=== PATIENT | female | born 1955 | race Caucasian/White ===

== ENCOUNTER 2019-12-30 18:18 | Emergency (ER) | payer OTHER, SELFPAY ==
--- NOTE | 2019-12-30 18:49 | ED.SKABFB ---
HPI - Skin/Abscess/Foreign Bdy General Chief complaint: Skin/Abscess/Foreign Body Stated complaint: Rash Time Seen by Provider: 12/30/19 19:18 Source: patient and RN notes reviewed Mode of arrival: ambulatory Limitations: no limitations History of Present Illness HPI narrative: 64-year-old female presents with concern for itchy rash. Reports she has spots that move around. Reports current rash on her right hip, spot on her left abdomen. Reports she will have different spots in different places. She denies any change in medications, household products, personal care products. Reports she was taking Benadryl with no relief. Reports she was concern for shingles. MD complaint: rash Related Data Home Medications Medication Instructions Recorded Confirmed Vitamin D-2 50,000 units PO WEEKLY 12/30/19 atorvastatin 40 mg PO DAILY 12/30/19 12/30/19 irbesartan 150 mg PO DAILY 12/30/19 12/30/19 Allergies Allergy/AdvReac Type Severity Reaction Status Date / Time No Known Allergies Allergy Verified 12/30/19 19:09 Review of Systems Review of Systems: Narrative: CONSTITUTIONAL: Denies malaise, chills, sweats, or fever. EYES: Denies visual changes, redness, or discharge. ENT: Denies rhinorrhea, congestion, sinus pain, otalgia or sore throat. CARDIOVASCULAR: Denies chest pain, palpitations, or edema. RESPIRATORY: Denies cough or dyspnea. GASTROINTESTINAL: Denies abdominal pain, nausea, vomiting, diarrhea SKIN: Reports itchy rash MUSCULOSKELETAL: Denies myalgia. NEUROLOGIC: Denies numbness, weakness All systems reviewed & are unremarkable except as noted in HPI and below PMFSH Comments At time of signature, agree with nursing past medical, surgical, social and family history. There is no relevant family history pertinent to the presenting complaint Exam Narrative: Exam Narrative: GENERAL: Well-appearing, well-nourished, and in no acute distress. HEAD: Normocephalic EYES: PERRLA, conjunctivae clear ENT: Mucous membranes moist. Tonsils not enlarged and without exudate. NECK: Supple. CHEST: No respiratory distress. Speaks in full sentences. SKIN: Warm, dry. Scattered red urticarial patches noted to right hip, left abdomen NEURO: Alert and oriented x3. PSYCH: Normal mood and affect Course Course Emergency Course: Patient is aware of diagnosis, understands and agrees to treatment plan. Anticipatory guidance given. Patient agrees to follow-up as directed and is aware of reasons to seek care at the emergency department. Portions of this record may have been created with voice recognition software Vital Signs Vital signs: Vital Signs Temperature 97.7 F 12/30/19 18:50 Pulse Rate 81 12/30/19 18:50 Respiratory Rate 16 12/30/19 18:50 Blood Pressure 139/84 12/30/19 18:50 Pulse Oximetry 100 12/30/19 18:50 Temperature 97.7 F 12/30/19 18:50 Pulse Rate 81 12/30/19 18:50 Respiratory Rate 16 12/30/19 18:50 Blood Pressure 139/84 12/30/19 18:50 Pulse Oximetry 100 12/30/19 18:50 Reviewed. MDM - Skin/Abscess/Foreign Bdy MDM Narrative Medical decision making narrative: Does not appear at this time to be erythema multiforme, bullous, SJS, TEN; no evidence at this time to suggest RMSF, endocarditis or Lyme disease; patient looks well, nontoxic and is tolerating oral intake; no neurologic signs or symptoms; no headache, photophobia or neck pain; afebrile; appropriate for initial outpatient treatment; discussed the importance of follow-up, patient agrees; question, viral exanthema, contact dermatitis, allergic dermatitis, eczema, urticaria, shingles. No soft palate or uvula edema, no tongue, lip edema or other mucosal involvement, no respiratory compromise, no stridor, no wheezing, no wheezing, no history of syncope, no hypotension, no nausea, vomiting, or diarrhea. Instructed patient to go to nearest ER immediately for any worsening symptoms including but not limited to: fever, spreading rash, pain, sore throa
[2019-12-30 18:50] VITALS: BP 139/84; PULSE 81; RESP 16; TEMP 36.5; O2SAT 100
== END 2019-12-30 19:40 | disposition home or self-care (01) ==
PROVIDERS: Emergency Provider Nurse Practitioner
DX: L50.9 Urticaria, unspecified (principal); Z95.1 Presence of aortocoronary bypass graft; E78.00 Pure hypercholesterolemia, unspecified; I10 Essential (primary) hypertension
CPT/HCPCS: 99203; G0463

== ENCOUNTER 2023-01-01 13:54 | Emergency (ER) | payer MEDICARE, SELFPAY ==
--- NOTE | ~2023-01-01 | XR_ITS ---
XR hand LT min 3V DATE: 01/01/2023 14:18 INDICATION: Injury January 01, 2023. Generalized pain. TECHNIQUE: 3 views left hand COMPARISON: None FINDINGS: There is a linear oblique fracture of the distal shaft of the fourth metacarpal bone with l ess than one cortical width lateral and up to approximately 2 mm anterior displacement. There is appr oximately 2.5 mm overriding of the fracture fragments with associated shortening of the fourth metaca rpal bone. No other recent fracture or dislocation is detected. There is mild osteoarthritis at the interphalangeal joints primarily. Osteopenia. IMPRESSION: Distal fourth metacarpal shaft fracture Reviewed, dictated and finalized at location A. MAKER
[2023-01-01 14:02] VITALS: BP 136/75; PULSE 74; RESP 20; TEMP 36.9; O2SAT 94
--- NOTE | 2023-01-01 14:16 | ED.UPPEXIN ---
HPI - Extremity Injury (Upper) General Chief Complaint: Extremity Injury, Upper Stated Complaint: left hand injury Source: patient and RN notes reviewed History of Present Illness HPI narrative: 67-year-old female presents urgent care with at side. Patient states this morning around 6:30 a.m. her suffer got caught on concrete step causing her to fall. Patient states fall causing injury to her left ring finger. Patient admits to hitting her right cheek and her right knee. Denies any LOC, neck pain, headache, dizziness, visual disturbance, chest pain, shortness of breath, abdominal pain, or vomiting. Patient denies any numbness or tingling. Related Data Home Medications Medication Instructions Recorded Confirmed aspirin 81 mg tablet,delayed 81 mg PO DAILY 11/28/22 01/01/23 release (Adult Aspirin Regimen) ezetimibe 10 mg tablet (Zetia) 10 mg PO DAILY 11/28/22 01/01/23 Allergies Allergy/AdvReac Type Severity Reaction Status Date / Time No Known Allergies Allergy Verified 01/01/23 14:02 Review of Systems Review of Systems: CONSTITUTIONAL: Denies fever, chills, or sweats. EYES: Denies visual changes, redness, or discharge. ENT: Denies otalgia and sore throat CARDIOVASCULAR: Denies chest pain, palpitations, or edema. RESPIRATORY: Denies cough or dyspnea. GASTROINTESTINAL: Denies abdominal pain, nausea, vomiting, or diarrhea. GENITOURINARY: Denies dysuria or hematuria. SKIN: Denies rash or itching. MUSCULOSKELETAL: Reports left finger pain NEUROLOGIC: Denies headache, numbness, or weakness. [facility] Past Medical History Medical History BMI 39.0-39.9,adult BMI 40.0-44.9, adult Cholecystectomy planned Surgical History Surgical History History of dilatation and curettage History of elbow surgery History of hysterectomy History of knee surgery History of open heart surgery History of shoulder surgery Family History Family History Father Hypertension Mother Acute myocardial infarction Lung cancer Sibling Breast cancer Lung cancer Anal cancer Cerebrovascular accident Social History Social History Smoking status: Former smoker Tobacco type: cigarettes Second hand tobacco smoke exposure: Yes Alcohol intake: never Substance use: never Substance use type: does not use Lack of Transportation: No Lack of Food: Never True Current Housing: I Have Housing Concerned About Future Housing: No Difficulty Paying Gas/Electric Bills: No Difficulty Paying for Meds: No Currently Unemployed: No Education: High School Diploma/GED Difficulty w/ Childcare or Family Care: No Living arrangements: with family Occupation/Education: retired 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 There is no relevant family history pertinent to the patient complaint. Exam Narrative: GENERAL: This is a well-nourished, well-developed patient, in no apparent distress. HEAD: normocephalic, atraumatic. EYES: PERRL. Sclera clear/white. Vision is grossly intact. EARS: External ears normal, auditory canals clear and without drainage, TMs normal without perforation. Hearing grossly intact. NOSE: External nose normal with no obvious nasal discharge, nares without redness, no rhinorrhea. THROAT: Mucous membranes moist, posterior pharynx clear. NECK: Neck supple, non-tender without lymphadenopathy, masses or thyromegaly. CARDIOVASCULAR: Regular rate and rhythm without murmurs, gallops, or rubs. RESPIRATORY: Clear to auscultation. Breath sounds equal odell
== END 2023-01-01 15:05 | disposition home or self-care (01) ==
PROVIDERS: Emergency Provider Nurse Practitioner Family; PCP Nurse Practitioner Family
DX: S62.325A Displaced fracture of shaft of fourth metacarpal bone, left hand, initial encounter for closed fracture (principal); W10.9XXA Fall (on) (from) unspecified stairs and steps, initial encounter; Z79.82 Long term (current) use of aspirin; Z87.891 Personal history of nicotine dependence
CPT/HCPCS: 29125; 73130; 99214; A4565; G0463

== ENCOUNTER 2023-01-05 02:37 | Day surgery (SDC) | payer MEDICARE, SELFPAY ==
[2023-01-03 09:02] VITALS: BMI 42.1
--- NOTE | 2023-01-03 09:23 | PC.NURSE ---
Report to the Outpatient Waiting Room, entrance under the green pavilion located off [address], at time ___0830____ on date _01/05/23 . Planned Procedure Time: ___1030 . Time changes happen often and if your time is changed the preop area will call you the afternoon before. - You and your visitor will be asked to self-screen and do not enter if you have any COVID symptoms. - Only one visitor is requested with a max of two and NO children visitors are allowed at this time. - The patient visitor may be requested to leave or wait in car when not with patient due to distancing restrictions. - A mask is optional within the hospital at this time. Patients may have clear liquids (water, carbonated beverages, clear teas, apple juice) until 3 hours prior to surgery (0730 AM) with a maximum of 20 ounces. - No food from midnight until time of surgery - Infants may have breast milk until 4 hours before surgery, infant formula 6 hours prior to surgery. - Children will be allowed to drink immediately following surgery. If applicable, please bring a bottle or sippy cup to assist with drinking. Juice, water, soda, and popsicles are readily available. For infants on formula, please bring formula the day of surgery. Pacifiers are allowed. Take the following medications with a SIP of water the morning of surgery: LEVOTHYROXINE DO NOT STOP ANY OF YOUR OTHER PRESCRIPTION MEDICATIONS PRIOR TO SURGERY ?EXCEPT THE FOLLOWING Medications to discontinue per physician ___PT STATES INSTRUCTED TO STAY ON ASPIRIN AND PLAVIX PER DR. KIMBLE Date to take last dose Please no make-up, nail setswana, hairspray, perfume, deodorant, or body powder the day of surgery. No jewelry (including any body piercings) or valuables the day of surgery, leave them at home. Please take a shower or bath the night before, or the morning of, surgery with an antibacterial soap. Wear comfortable, loose fitting clothing. Children are encouraged to wear pajamas. - Jewelry must be removed prior to entering the operating room. Rings and piercings that are not removed may be cut off. - The hospital will not accept responsibility for valuables. - Please leave all valuables, including medications, at home the day of surgery. If you are going home after surgery, a licensed company truck driver must drive you home. - NO public transportation without another adult if you receive anesthesia. - We recommend that an adult stay with you for 24 hours following discharge. - We also recommend that you do not drive, make important decision, drink alcoholic beverages, or take any drugs that were not prescribed by your health care provider for at least 24 hours after your discharge time. For Pediatric surgeries, we recommend two adults accompany the child home. Follow any additional instructions given to you from your surgeon. If you or anyone in your household have experienced Covid symptoms in the past week, please notify your surgeon or the nurse liaison at the phone number below for possible testing. Telephone instructions given to ____PATIENT and asked if any additional questions and then verbalized understanding. Patient advised to call surgeon office or pre surgery nurse liaison [phone] if any additional questions.
[2023-01-05] VITALS (10 sets, daily range): BP systolic 122–144; BP diastolic 51–78; PULSE 66–101; RESP 12–18; TEMP 36.7–37.1; O2SAT 92–99
--- NOTE | ~2023-01-05 | XR_ITS ---
EXAMINATION: XR surgery orthopedic DATE: 01/05/2023 11:59 INDICATION: ORIF left fourth finger fracture. TECHNIQUE: 3 fluoroscopic images of the left hand centered at the fourth metacarpal were obtained dur ing procedure performed by Dr. Gomez. Radiologist was not present for the imaging or procedure. The a mount of fluoroscopy time used during this procedure was 1.3 minutes. COMPARISON: Radiographs dated 01/01/2023 FINDINGS: Interval reduction to essentially anatomic alignment of an oblique fracture of the distal metaphysis of the left fourth metacarpal. The fracture is fixed with a pair of dorsal to volar directed screws. No other fractures identified. Joint spaces are normal. IMPRESSION: 1. Near-anatomic alignment post open reduction internal fixation of a distal diaphyseal fracture of t he left fourth metacarpal. Reviewed, dictated and finalized at location D. OR BUSINESS CONSULTANT IMPRESSION: 1. Near-anatomic alignment post open reduction internal fixation of a distal di aphyseal fracture of the left fourth metacarpal.
--- NOTE | 2023-01-05 07:08 | WPDHPUPDATE1 ---
History and Physical Update Update Date/Time: 01/05/23 07:08 History and Physical has been reviewed, including an updated exam of the patient. There are NO changes in the patient's condition. Risks, benefits, and alternatives have been discussed and questions answered. Patient agrees to proceed with procedure.
[2023-01-05] MEDS: ACETAMINOPHEN 500 MG TABLET 1000 MG PO (08:00)
[2023-01-05] MEDS: LACTATED RINGERS 1,000 ML 30 ML IV CONT (08:07)
--- NOTE | 2023-01-05 08:40 | WPDANESEPPF ---
Anes - Initial Pre Proc Eval Procedure: Operation Date: 01/05/23 09:30 Proposed Procedures p Open Reduction Internal Fixation Left Fourth Metacarpal Fracture - Jax Gomez MD Date/Time: 01/05/23 08:40 Surgeon: Jax Gomez MD Pre Op Diagnosis: left fourth metacarpal fracture Patient Data Age: 67 Gender: F Height: 1.63 m Weight: 107.4 kg Last Vital Signs Temp 98.8 F 01/05/23 08:03 Pulse 66 01/05/23 08:03 Resp 14 01/05/23 08:03 BP 136/77 01/05/23 08:03 Pulse Ox 97 01/05/23 08:03 O2 Del Method Room Air 01/05/23 08:03 Allergies Allergy/AdvReac Type Severity Reaction Status Date / Time No Known Allergies Allergy Verified 01/05/23 08:08 Home Medications Medication Instructions Recorded Confirmed Type clopidogrel 75 mg tablet 75 mg PO DAILY #1 tablet 08/29/22 01/03/23 Rx aspirin 81 mg tablet,delayed 81 mg PO DAILY 11/28/22 01/03/23 History release (Adult Aspirin Regimen) duloxetine 30 mg capsule,delayed 30 mg PO DAILY #90 caps 11/28/22 01/03/23 Rx release ezetimibe 10 mg tablet (Zetia) 10 mg PO DAILY 11/28/22 01/03/23 History famotidine 20 mg tablet 20 mg PO BID #60 tabs 11/28/22 01/03/23 Rx levothyroxine 50 mcg tablet 50 mcg PO DAILY #90 tabs 12/23/22 01/05/23 Rx cetirizine 10 mg capsule (Zyrtec) 10 mg PO HS PRN Congestion 01/03/23 01/03/23 History Patient hx anesthesia problems: post op nausea/vomiting Family hx anesthesia problems: none Results Review: All pre-operative results and documents have been reviewed as part of the pre-operative evaluation. [facility] Past Medical History Medical History BMI 39.0-39.9,adult BMI 40.0-44.9, adult Cholecystectomy planned Surgical History Surgical History History of dilatation and curettage History of elbow surgery History of hysterectomy History of knee surgery History of open heart surgery History of shoulder surgery Family History Family History Father Hypertension Mother Acute myocardial infarction Lung cancer Sibling Breast cancer Lung cancer Anal cancer Cerebrovascular accident Social History Social History Smoking packs per day: 3 Smoking cigarettes per day: 60.0 Years smoked: 21 Smoking pack-years: 63.00 Smoking status: Former smoker Tobacco type: cigarettes Second hand tobacco smoke exposure: No Additional smoking assessment comments: STATES QUITING 1992 Alcohol intake: never Substance use: never Substance use type: does not use Lack of Transportation: No Lack of Food: Never True Current Housing: I Have Housing Concerned About Future Housing: No Difficulty Paying Gas/Electric Bills: No Difficulty Paying for Meds: No Currently Unemployed: No Education: High School Diploma/GED Difficulty w/ Childcare or Family Care: No Living arrangements: with family Occupation/Education: retired 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 Informed Consent: The patient's anesthetic plan and its attendant risks and benefits were discussed with the patient/family/POA. Questions were solicited and answ
[2023-01-05] MEDS: ceFAZolin 2 GM/D5W 50 ML 2 GM/50 ML BAG IVPB (09:53)
[2023-01-05] MEDS: LIDO 1%/EPINEPHRINE 1:100,000 20 ML VIAL INFILTRATE (09:53)
--- NOTE | 2023-01-05 12:36 | P.OP_ITS ---
Procedure Note - Detailed Date of Procedure 01/05/23 Pre-op Diagnosis left fourth metacarpal fracture Post-op Diagnosis Same Procedure Performed Open reduction internal fixation of a displaced left 4th metacarpal shaft fracture Surgeon Jax Gomez MD Family Consumer Scientist Porsha Anesthesia General Description of Procedure The left hand was marked on the patient while she waited in the holding area. She was then taken to the operating room where she was placed supine on the operating table. She was given general anesthesia. The left upper extremity was prepped and draped in usual fashion. The fracture was imaged with the C- arm. I was unable to fully reduce the fracture without opening. The site was infiltrated with 1% lidocaine with epinephrine. The extremity was exsanguinated and the tourniquet inflated to 250 mmHg. The dorsal midline incision was made over the 4th metacarpal. Access was achieved from the radial side of the tendon. The fracture clot was cleared. Reduction was easily obtained with traction and a lobster claw clamp. Two 2 mm lag screws, an 8mm and a 9mm, from the modular handset were placed successfully to the overlapping ends of both fragments. The site was irrigated. No internal sutures were placed. The skin was closed with a running 5 0 nylon. A soft bulky bandage with Coban wrap was applied there is no splint. She received 2 g Ancef preop Estimated Blood Loss -5.0 Tourniquet Time 90 Drains No Packing No Pathology None sent Complications No immediate complications Condition Stable Disposition PACU
[2023-01-05] MEDS: ONDANSETRON INJ 4 MG/2 ML VIAL IV PUSH (12:59)
[2023-01-05] MEDS: KETOROLAC 30 MG/ML VIAL (*BKC) IV PUSH (13:33)
== END 2023-01-05 13:55 | disposition home or self-care (01) ==
PROVIDERS: PCP Nurse Practitioner Family; Visit Provider Plastic Surgery
PROC: (CPT 26615; principal; 2023-01-05 09:30)
DX: S62.325A Displaced fracture of shaft of fourth metacarpal bone, left hand, initial encounter for closed fracture (principal); W19.XXXA Unspecified fall, initial encounter; Z79.02 Long term (current) use of antithrombotics/antiplatelets; Z79.82 Long term (current) use of aspirin; Z87.891 Personal history of nicotine dependence; E66.01 Morbid (severe) obesity due to excess calories; Z68.41 Body mass index [BMI] 40.0-44.9, adult
CPT/HCPCS: 26615; 99199; A9270; C1713; J0690; J1885; J2001; J2250; J2405; J2704; J3010; J7120

== ENCOUNTER 2023-03-01 14:27 | Outpatient (CLI) | payer MEDICARE, SELFPAY ==
--- NOTE | ~2023-03-01 | XR_ITS ---
XR hand LT min 3V DATE: 03/01/2023 14:50 INDICATION: Fracture left fourth metacarpal; surgery on January 05, 2023 TECHNIQUE: 3 views COMPARISON: January 01, 2023 left hand FINDINGS: There are 2 screws at the linear oblique fracture of the distal shaft of the fourth metacar pal bone. There is mild stable anterior displacement since January 01, 2023. There is callus formati on around the fracture at the fracture line is still readily detectable. There is foreshortening of t he fourth metacarpal bone due to mild overriding of the fracture fragments. There is mild lucency around the 2 screws which may indicate; loosening infection is not excluded. Cl inical correlation is advised IMPRESSION: Internally fixated linear oblique fracture of distal fourth metacarpal shaft with callus formation indicating healing Lucency around the screws may be due to loosening; infection is not excluded. Clinical correlation is advised Reviewed, dictated and finalized at location A. IMPRESSION: Internally fixated linear oblique fracture of distal fourth metacar pal shaft with callus formation indicating healing Lucency around the screws may be due to loosening; infection is not excluded. C linical correlation is advised
== END 2023-03-01 14:28 | disposition home or self-care (01) ==
PROVIDERS: PCP Nurse Practitioner Family; Visit Provider Plastic Surgery
DX: S62.325D Displaced fracture of shaft of fourth metacarpal bone, left hand, subsequent encounter for fracture with routine healing (principal)
CPT/HCPCS: 73130

== ENCOUNTER 2023-03-06 06:57 | Outpatient (CLI) | payer MEDICARE, SELFPAY ==
--- NOTE | ~2023-03-06 | CT_ITS ---
EXAMINATION: CT hand LT wo con DATE: 03/06/2023 07:22 INDICATION: Left fourth metacarpal fracture TECHNIQUE: High resolution computed tomography (CT) of the left hand was performed without intravenou s contrast. Additional sagittal and coronal reconstructions were performed. Dose Bridger The dose-le ngth product was 495.86 mGy-cm. COMPARISON: 03/01/2023 FINDINGS: Again seen is an oblique fracture of the distal axial region of the fourth metacarpal which is been f ixed with 2 screws. The screws which when placed demonstrate a parallel orientation have moved with i nterval development of one cortical width palmar/radial displacement and 20 degree palmar angulation. It of the distal screw is located in the more distal fragment and the head of the more proximal scre w remains within the distal margin of the proximal fragment. The tips of the screws appear however to have lost tortuous beyond the fracture margins. There is however no significant lucency surrounding the intraosseous portions of the screws or evident progressive osteolysis to suggest infection is mor e likely to represent a mechanical loosening. There is callus formation surrounding the fracture with single tiny focus of possible bridging along the palmar/ulnar margin of the fracture. Remainder of t he left hand and wrist is in normal alignment. No other fractures identified. Mild polyarticular oste oarthritis at the triscaphe, first carpometacarpal, midcarpal and multiple interphalangeal joints wit h distal predominance. soft tissues are unremarkable. IMPRESSION: 1. New one cortical width displacement and 20 degree palmar angulation of a distal diaphyseal fractur e of the left fourth metacarpal. Likely mechanical loosening of the screw fixation with tiny focus of either very early bridging or near bridging. No evident osteolysis to suggest infection. Reviewed, dictated and finalized at location A. IMPRESSION: 1. New one cortical width displacement and 20 degree palmar angulation of a dis emilee diaphyseal fracture of the left fourth metacarpal. Likely mechanical loosen ing of the screw fixation with tiny focus of either very early bridging or near bridging. No evident osteolysis to suggest infection.
== END 2023-03-06 06:58 | disposition home or self-care (01) ==
PROVIDERS: PCP Nurse Practitioner Family; Visit Provider Plastic Surgery
DX: S62.325A Displaced fracture of shaft of fourth metacarpal bone, left hand, initial encounter for closed fracture (principal); X58.XXXA Exposure to other specified factors, initial encounter
CPT/HCPCS: 73200

== ENCOUNTER 2023-04-04 12:10 | Outpatient (CLI) | payer MEDICARE, SELFPAY ==
--- NOTE | ~2023-04-04 | XR_ITS ---
EXAMINATION: XR hand LT min 3V DATE: 04/04/2023 12:28 INDICATION: Fourth metacarpal fracture with delayed healing. TECHNIQUE: 3 views of left hand were obtained. COMPARISON: Left hand radiographs 03/01/2023, 01/01/2023 FINDINGS: There is an oblique fracture of neck of fourth metacarpal. The distal fracture fragment dem onstrates 3 mm palmar radial displacement and shortening. Fixation is seen with 2 screws. Alignment i s unchanged from 03/01/2023. There is increased callus formation. There is mild osteoarthritis of some of the interphalangeal joints. IMPRESSION: 1. Healing oblique fracture of neck of fourth metacarpal with screw fixation. Reviewed, dictated and finalized at location A.
== END 2023-04-04 12:11 | disposition home or self-care (01) ==
PROVIDERS: PCP Nurse Practitioner Family; Visit Provider Plastic Surgery
DX: S62.325D Displaced fracture of shaft of fourth metacarpal bone, left hand, subsequent encounter for fracture with routine healing (principal); X58.XXXD Exposure to other specified factors, subsequent encounter
CPT/HCPCS: 73130

== ENCOUNTER → 2023-05-31 15:29 | Outpatient (CLI) | payer MEDICARE, SELFPAY ==
--- NOTE | ~2023-05-31 | XR_ITS ---
EXAMINATION: XR lumbar spine 2-3V DATE: 05/31/2023 15:56 INDICATION: Low back pain, unspecified. TECHNIQUE: 3 views of lumbar spine were obtained. COMPARISON: None. FINDINGS: There is 8 degrees levocurvature of thoracolumbar spine. Vertebral body heights are normal. There is mildly decreased disc height at L2-L3 and L3-L4. There is multilevel mild to moderate facet joint osteoarthritis. Surgical clips in the right upper quadrant are likely from cholecystectomy. IMPRESSION: 1. Mild lumbar spondylosis. Reviewed, dictated and finalized at location E. IMPRESSION: 1. Mild lumbar spondylosis.
== END ==
PROVIDERS: PCP Physician Assistant Medical; Visit Provider Physician Assistant Medical
DX: M47.896 Other spondylosis, lumbar region (principal)
CPT/HCPCS: 72100

== ENCOUNTER 2023-06-13 05:46 | Emergency (ER) | payer MEDICARE, SELFPAY ==
--- NOTE | ~2023-06-13 | CT_ITS ---
Non-contrast Head CT History: Vertigo Technique: Axial non-contrast imaging of the brain was performed. Dose reduction technique was used on this scan by utilizing automated exposure control and iterative reconstruction technique. The dose -length product (DLP) was 605.33 mGy-cm. Findings: There is no evidence of intracranial hemorrhage, mass lesion, or acute infarct. Brain par enchyma appears normal. The ventricles and subarachnoid spaces are normal in size. The calvarium ap pears normal. The visualized paranasal sinuses and mastoid air cells are clear. Impression: No significant abnormality seen. Reviewed, dictated and finalized at location . Impression: No significant abnormality seen.
[2023-06-13 05:53] VITALS: BP 189/91; PULSE 73; RESP 16; TEMP 36.8; O2SAT 100
[2023-06-13 06:12] VITALS: PULSE 67
--- NOTE | 2023-06-13 06:19 | ECG_ITS ---
Measurements Intervals [place] Rate: 69 P: 51 CO: 221 QRS: -51 QRSD: 126 T: 48 QT: 409 QTc: 440 Interpretive Statements SINUS RHYTHM WITH FIRST DEGREE AV BLOCK RIGHT BUNDLE BRANCH BLOCK LEFT ANTERIOR FASCICULAR BLOCK LEFT VENTRICULAR HYPERTROPHY AND ST-T CHANGE BASELINE ARTIFACT- I, II, AVR, AVL, AVF ABNORMAL ECG NO PREVIOUS ECG AVAILABLE FOR COMPARISON Electronically Signed On 06-13-2023 6:53:32 CDT by Steven Santa D.O.
--- NOTE | 2023-06-13 06:25 | ED.DIZZY ---
HPI - Dizziness General Chief Complaint: Dizziness Stated Complaint: dizziness Time Seen by Provider: 06/13/23 05:52 History of Present Illness HPI Narrative: This is a 67-year-old female with past history of valve replacement, hypothyroidism, cervical radiculopathy, who presents to the emergency department complaining of lightheadedness and vertigo. The patient states approximately 3 hours ago, she was performing in bed neck exercises, when she experienced quick onset lightheadedness associated with vertigo. This worsened with sitting forward rapidly. She denies associated tinnitus, hearing loss, weakness/numbness or change/loss of vision. She denies chest pain, palpitations or difficulty breathing. Related Data Home Medications Medication Instructions Recorded Confirmed aspirin 81 mg tablet,delayed 81 mg PO DAILY 11/28/22 05/30/23 release (Adult Aspirin Regimen) cetirizine 10 mg capsule (Zyrtec) 10 mg PO HS PRN Congestion 01/03/23 05/30/23 cholecalciferol (vitamin D3) 50 100 mcg PO DAILY 03/29/23 05/30/23 mcg (2,000 unit) capsule multivitamin 1 tablet PO DAILY 03/29/23 05/30/23 Allergies Allergy/AdvReac Type Severity Reaction Status Date / Time ezetimibe AdvReac Fatigued Verified 05/30/23 15:03 [facility] Past Medical History Medical History (Updated 06/13/23 @ 07:23 by Elias Fong MD) BMI 39.0-39.9,adult BMI 40.0-44.9, adult Cholecystectomy planned Fracture of left wrist Hypothyroidism Low back pain potentially associated with radiculopathy RLS (restless legs syndrome) Surgical History Surgical History History of dilatation and curettage History of elbow surgery History of hysterectomy History of knee surgery History of open heart surgery History of shoulder surgery Family History Family History Father Hypertension Mother Acute myocardial infarction Lung cancer Sibling Breast cancer Lung cancer Anal cancer Cerebrovascular accident Social History Social History Smoking packs per day: 3 Smoking cigarettes per day: 60.0 Years smoked: 21 Smoking pack-years: 63.00 Smoking status: Former smoker Tobacco type: cigarettes Second hand tobacco smoke exposure: No Additional smoking assessment comments: STATES QUITING 1992 Alcohol intake: never Substance use: never Substance use type: does not use Lack of Transportation: No Lack of Food: Never True Current Housing: I Have Housing Concerned About Future Housing: No Difficulty Paying Gas/Electric Bills: No Difficulty Paying for Meds: No Currently Unemployed: No Education: High School Diploma/GED Difficulty w/ Childcare or Family Care: No Living arrangements: with family Occupation/Education: retired 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 HEAD: Normocephalic, atraumatic. EYES: PERRLA and EOMI. ENT: Nares clear, no rhinorrhea or epistaxis. Mucous membranes moist. Oropharynx without tonsillar hypertrophy exudate or other lesions. Bilateral TMs pearly berry, mild amount of clear fluid noted in the bilateral middle ears with slight TM bulging NECK: Supple. No carotid bruits or JVD. No midline spine tenderness to palpation, no step-off or crepitus CHEST: Clear to auscultation. No respiratory distress. No wheezes rales or rhonchi HEART: Regular rate and rhythm. No murmur heard. Normal peripheral pulses. ABDOMEN: Soft, nontender, nondistended, normal active bowel sounds. EXTREMITIES: Normal range of motion. No edema. SKIN: Warm, dry, no rash. NEURO: No focal deficits. Alert and oriented x3. Strength 5/5
[2023-06-13] MEDS: ONDANSETRON HCL ODT 4 MG TABLET PO (06:45)
[2023-06-13] MEDS: MECLIZINE HCL 25 MG TABLET PO ×2 (06:47→07:28)
[2023-06-13 06:50] VITALS: BP 156/85; PULSE 69
[2023-06-13 06:52] VITALS: BP 154/90; PULSE 71
[2023-06-13 06:56] VITALS: BP 156/89; PULSE 76
[2023-06-13 06:59] LABS: Alanine Aminotransferase 21 U/L (6-35); Albumin Level 4.3 g/dL (3.5-5.1); Alkaline Phosphatase 116 U/L (38-126); Anion Gap 10 mmol/L (8-16); Aspartate Amino Transferase 26 U/L (14-36); Bilirubin,Total 0.7 mg/dL (0.2-1.3); Blood Urea Nitrogen 15 mg/dL (7-17); Calcium 9.5 mg/dL (8.4-10.2); Carbon Dioxide 24 mmol/L (22-30); Chloride 105 mmol/L (98-107); Estimated CRCL calculation 84 ml/min; Estimated Glomerular Filt Rate > 60; Glucose 106 mg/dL (65-110); Magnesium 1.7 mg/dL (1.6-2.3); Potassium 3.9 mmol/L (3.4-5.0); Sodium 139 mmol/L (137-145)
[2023-06-13 07:20] LABS: Basophils Absolute Auto 0.1 K/mm3 (0.0-0.1); Basophils Percent Auto 0.7 % (0.2-1.2); Eosinophils Absolute Auto 0.3 K/mm3 (0-0.3); Hemoglobin 14.9 g/dL (12.0-15.0); Immature Granulocyte Absolute 0.03 K/mm3 (0.00-0.031); Immature Granulocyte Percent A 0.3 % (0-0.5); Lymphocytes Absolute Auto 2.04 K/mm3 (0.9-3.2); Lymphocytes Percent Auto 23.4 % (18.3-44.2); Mean Corpuscular HGB Conc 32.4 g/dl (32-36); Mean Corpuscular Hemoglobin 28.4 pg (26-34); Mean Corpuscular Volume 87.8 fl (80-100); Mean Platelet Volume 11.2 fl (7.4-10.4); Monocytes Absolute Auto 0.7 K/mm3 (0.1-0.6); Monocytes Percent Auto 7.7 % (2.6-8.5); Neutrophils Absolute Auto 5.7 K/mm3 (1.3-6.7); Neutrophils Percent Auto 64.9 % (45.5-73.1); Platelet Count Result 199 k/mm3 (150-375); Red Blood Count 5.24 M/mm3 (4.2-5.4); White Blood Count 8.7 K/mm3 (4.5-10.0)
[2023-06-13 07:46] VITALS: BP 121/70; PULSE 58; RESP 16; O2SAT 98
== END 2023-06-13 07:48 | disposition home or self-care (01) ==
PROVIDERS: Emergency Provider Preventive Medicine Aerospace Medicine; PCP Physician Assistant Medical
DX: R42 Dizziness and giddiness (principal); R94.31 Abnormal electrocardiogram [ECG] [EKG]; E03.9 Hypothyroidism, unspecified; G25.81 Restless legs syndrome
CPT/HCPCS: 36415; 70450; 80053; 83735; 85025; 93005; 99284; A9270

== ENCOUNTER → 2023-08-23 14:21 | Outpatient (CLI) | payer MEDICARE, SELFPAY ==
--- NOTE | ~2023-08-23 | MR_ITS ---
MRI of the cervical spine Clinical History: Cervical radiculopathy Technique: Axial T2-weighted and gradient images, and sagittal T1-weighted, T2-weighted, and STIR mounika ges were acquired. Findings: There is no fracture or subluxation of the cervical spine. Vertebral bodies maintain normal height and alignment. There is heterogeneous marrow signal, but no focally suspicious marrow signal abnormality seen. Marrow signal changes are probably reactive due to underlying degenerative disc dis ease. There is moderate to advanced degenerative disc narrowing throughout the cervical spine. At C2-C3, there is no significant disc bulge or herniation. No spinal canal stenosis, cord compressio n, or neural foraminal narrowing. At C3-C4, there is minimal disc osteophyte complex and probable mild facet arthropathy bilaterally. P ossible mild right neural foraminal narrowing. No central canal stenosis, cord compression, or defini te left neural foraminal narrowing. At C4-C5, there is mild disc osteophyte complex and mild facet arthropathy. There is bilateral neural foraminal narrowing, right worse than left. No central canal stenosis or neural foraminal narrowing. At C5-C6, there is disc osteophyte complex and bilateral facet arthropathy, right worse than left. Th ere is bilateral neural foraminal narrowing, right worse than left. No fariba central canal stenosis o r cord compression. At C6-C7, there is mild disc osteophyte complex. There is probable bilateral facet arthropathy. No de finite neural foraminal narrowing. No central canal stenosis or cord compression. No abnormal signal in the spinal cord. Paravertebral soft tissues are unremarkable. Impression: Mild to moderate degenerative spondylosis, as above. Reviewed, dictated and finalized at location . Impression: Mild to moderate degenerative spondylosis, as above.
== END ==
PROVIDERS: PCP Family Medicine; Visit Provider Nurse Practitioner Family
DX: M47.22 Other spondylosis with radiculopathy, cervical region (principal)
CPT/HCPCS: 72141

== ENCOUNTER → 2023-11-28 11:47 | Outpatient (CLI) | payer MEDICARE, SELFPAY ==
--- NOTE | ~2023-11-28 | XR_ITS ---
Clinical Indication: Cough PA and lateral views of the chest: Comparison: None Findings: Questionable minimal left basilar haziness. Right lung clear. Cardiomediastinal silhouette is within normal limits, status post median sternotomy. Bones and soft tissues are unremarkable. Impression: Questionable minimal left basilar haziness. Correlate for atelectasis or pneumonia. Reviewed, dictated and finalized at [facility]. ESSOR GRAIN Impression: Questionable minimal left basilar haziness. Correlate for atelectasis or pneumo curly.
== END ==
PROVIDERS: PCP Nurse Practitioner Family; Visit Provider Nurse Practitioner Family
DX: R05.3 Chronic cough (principal); R91.8 Other nonspecific abnormal finding of lung field
CPT/HCPCS: 71046

== ENCOUNTER → 2023-12-19 12:27 | Outpatient (CLI) | payer MEDICARE, SELFPAY ==
--- NOTE | ~2023-12-19 | XR_ITS ---
Clinical Indication: Chronic cough PA and lateral views of the chest: Comparison: 11/28/2023 Findings: Left basilar haziness is similar to prior exam. Questionable minimal haziness peripheral ri ght upper lobe.. Cardiomediastinal silhouette is within normal limits. Bones and soft tissues are un remarkable. Impression: Mild bibasilar haziness, worse left lung base, similar to prior exam. Correlate for pulmonary edema, infection, or chronic pulmonary disease. Consider CT to further evaluate pulmonary pathology as indic ated. Reviewed, dictated and finalized at location M. 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 Correlate for pulmonary edema, infection, or chronic pulmonary disease. Consider CT to f urther evaluate pulmonary pathology as indicated.
== END ==
PROVIDERS: Visit Provider Nurse Practitioner Family
DX: R05.3 Chronic cough (principal)
CPT/HCPCS: 71046

== ENCOUNTER 2023-12-26 14:38 | Outpatient (CLI) | payer MEDICARE, SELFPAY ==
--- NOTE | ~2023-12-26 | CT_ITS ---
CT Scan of the Chest without Contrast: Clinical Indication: Lung disorder Technique: Contiguous sections were acquired throughout the chest without intravenous contrast. Dose reduction technique was used on this scan by utilizing automated exposure control and iterative recon struction technique. The dose-length product (DLP) was 362.21 mGy-cm. Findings: There is no evidence of any significant mediastinal, hilar or axillary lymphadenopathy. The mediastin al soft tissues appear normal. Moderate hiatal hernia noted. There is no evidence of pleural or pericardial effusion. There is mild subpleural reticular, areas of peripheral interstitial thickening. There is a 4 mm righ t lower lobe pulmonary nodule (axial image 69). Images through the upper abdomen reveal no abnormalities. Impression: Probable mild chronic interstitial disease, with peripheral distribution. 4 mm lobe pulmonary nodule. According to Fleischner Society criteria, for a low-risk patient, no furt her follow-up required. For a high-risk patient, consider 12 month follow-up CT. Reviewed, dictated and finalized at [facility]. 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 4 mm lobe pulmonary nodule. According to Fleischner Society criteria, for a low -risk patient, no further follow-up required. For a high-risk patient, consider 12 month follow-up CT.
== END 2023-12-26 14:39 | disposition home or self-care (01) ==
PROVIDERS: PCP Family Medicine; Visit Provider Nurse Practitioner Family
DX: J98.4 Other disorders of lung (principal); R91.1 Solitary pulmonary nodule
CPT/HCPCS: 71250

== ENCOUNTER 2024-09-29 08:16 | Outpatient (CLI) | payer MEDICARE, SELFPAY ==
--- NOTE | ~2024-09-29 | MR_ITS ---
MRI of the right knee Clinical history: Pain Technique: Coronal proton density and proton density-weighted images, sagittal proton-density and T2 fat-sat images, and axial proton-density fat-saturated images were acquired. Findings: Anterior and posterior cruciate ligaments are intact. Medial collateral ligament and the la teral collateral ligament, as are intact. Popliteus tendon is intact. There is a radial tear at the posterior root of the medial meniscus with partial extrusion of the bod y segment into the medial gutter. Questionable oblique tear of the anterior horn of the lateral menis cus. There is mild chondral thinning along the lateral patellar facet. Remaining articular cartilage is re latively well-preserved. There is subchondral insufficiency fracture the medial tibial plateau, with surrounding amorphous marrow edema. Extensor mechanism is intact. No significant joint effusion or Spears's cyst. Impression: Subchondral sufficiency fracture at the medial tibial plateau with amorphous surrounding marrow edema . Radial tear at the posterior root of the medial meniscus. Questionable oblique tear of the anterior horn lateral meniscus. Reviewed, dictated and finalized at location . PING CHECKER Impression: Subchondral sufficiency fracture at the medial tibial plateau with amorphous martin rrounding marrow edema. Radial tear at the posterior root of the medial meniscus. Questionable oblique tear of the anterior horn lateral meniscus.
== END 2024-09-29 08:17 | disposition home or self-care (01) ==
PROVIDERS: PCP Family Medicine; Visit Provider Family Medicine
DX: S82.141A Displaced bicondylar fracture of right tibia, initial encounter for closed fracture (principal); S83.241A Other tear of medial meniscus, current injury, right knee, initial encounter; X58.XXXA Exposure to other specified factors, initial encounter; R60.9 Edema, unspecified
CPT/HCPCS: 73721

== ENCOUNTER 2025-04-24 15:36 | Outpatient (CLI) | payer MEDICARE, SELFPAY ==
--- NOTE | ~2025-04-24 | XR_ITS ---
Clinical Indication: Pulmonary fibrosis PA and lateral views of the chest: Comparison: 12/19/2023 Findings: Chronic interstitial disease is similar to prior exam.. Cardiomediastinal silhouette is wi thin normal limits. Bones and soft tissues are unremarkable. Impression: Chronic interstitial disease, similar to prior exam. Reviewed, dictated and finalized at location . Impression: Chronic interstitial disease, similar to prior exam.
--- OUTSIDE RECORDS SUMMARY | 2025-04-24 15:59 | XMS_ITS | Encounter Summary ---
Author Organization [facility] Healthcare Address [address] [place] [address] Care Team Providers Care Mortgage Manager Name Role Phone Ricki Small MD Primary Care Provider [phone] Jose Luis Del Valle MD Unavailable [phone] Encounter Details Date Type Department Care Team (Latest Contact Info) Description 04/04/2025 Results Follow-Up [facility] Cardiology [address] [place] [address] Obey Ortega MD [address] [id number] Transthoracic Echo (TTE) Complete W Doppler/CF Social History Tobacco Use Types Packs/Day Years Used Date Smoking Tobacco: Former Smokeless Tobacco: Never Alcohol Use Standard Drinks/Week Comments Yes 0 (1 standard drink = 0.6 oz pur e alcohol) AUDIT-C Answer Date Recorded Q1: How often do you have a drink containing alcohol? Never 07/21/2023 Q2: How many drinks containi ng alcohol do you have on a typical day when you are drinking? Patient does not drink Q3: How often do you have si x or more drinks on one occasion? Never 07/21/2023 Personal Safety Answer Date Recorded Have you ever been in or are you currently in a harmful physical or emotional relationship or is someone making you feel afraid or unsafe? Denies 03/27/2025 Comments No Sex and Gender Information Value Date Recorded Sex Assigned at Not on file Legal Sex Female 12:14 AM [employer] Gender Identity Not on file Sexual Orientation Not on file documented as of this encounter Plan of Treatment Not on file documented as of this encounter Visit Diagnoses Not on filedocumented in this encounter Care Teams Mortgage Manager Relationship Specialty Start Date End Date Ricki Small MD [address] [place] [address] PCP - General Family Medicine 09/18/24 [place] [id number] [address] [address] Consulting Physician Cardiology 12/04/24 documented as of this encounter
--- OUTSIDE RECORDS SUMMARY | 2025-04-24 15:59 | XMS_ITS | Continuity of Care Document ---
Author Organization [facility] [employer] Address [address] [place] [address] Phone Care Team Providers Care Veterans Contact Representative Name Role Phone Stan Ramirez MD Unavailable Unavailable Allergies, Adverse Reactions, Alerts Substance Reaction Status Criticality No Known Drug Allergies Active No I nformation Medications Medication Instructions Dosage Effective Dates (start - stop) Status Comments MONTELUKAST SOD 10 MG TABLET TAKE 1 TABLET BY MOUTH EVERY DAY IN THE EVENING - No Longer Active meclizine 25 mg tablet take 1 tablet by oral route 3 times every day as needed for motion sickness - No Longer Active amoxicillin 500 mg-potassium clavulanate 125 mg tablet take 1 tablet by oral route every 12 hours 1.00 tablet - No Longer Active atorvastatin 40 mg tablet take 1 tablet by oral route every day 40 MG - No Longer Active Vitamin D3 50 mcg (2,000 unit) tablet take 1 tablet by oral route every day - No Longer Active olmesartan 20 mg tablet take 1 tablet by oral route every day 20 MG No Longer Active Replaces irbesartan -please cancel any remaining prescriptions. Zyrtec 10 mg tablet take 1 tablet by oral route every day 10 MG - No Longer Active clopidogrel 75 mg tablet take 1 tablet by oral route every day 75 MG - No Longer Active Procedures Procedure Date FALL RISK ASSESSMENT DOC'D PRES/ABSN URINE INCON ASSESS Pt inelig neg scrn depres CBC, INC PLATELETS AND DIFFERENTIAL COMPREHEN METABOLIC PANEL CMP LIPID PANEL VITAMIN D, 25-HYDROXY ROUTINE VENIPUNCTURE FERRITIN LEVEL IRON (FE), TOTAL TIBC, & % SATURATION PPPS, subseq visit SYST BP GE 130 - 139MM HG DIAST BP < 80 MM HG FALL RISK ASSESSMENT DOC'D PRES/ABSN URINE INCON ASSESS CBC, INC PLATELETS AND DIFFERENTIAL COMPREHEN METABOLIC PANEL [facility] URINALYSIS, DIPSTICK (UA) - Office Lab F ROUTINE VENIPUNCTURE OFFICE UWVAN-VXP-TOBSCLUI SYST BP LT 130 MM HG DIAST BP 80-89 MM HG FALL RISK ASSESSMENT DOC'D PRES/ABSN URINE INCON ASSESS Pt inelig neg scrn depres IMMUN ADMIN (INC PERCUTANEOUS) SINGLE, F IRST INJ Flu Vac, quad (RIV4), Preservative And A ntibiotic Free IM GENERAL HEALTH PANEL IRON (FE), TOTAL LIPID PANEL VITAMIN B12 (SERUM) ROUTINE VENIPUNCTURE PPPS, subseq visit BODY MASS INDEX DOCD SYST BP LT 130 MM HG DIAST BP < 80 MM HG FALL PLAN OF CARE DOC'D URINE INCON PLAN DOC'D PRES/ABSN URINE INCON ASSESS Pt inelig neg scrn depres CBC, INC PLATELETS AND DIFFERENTIAL COMPREHEN METABOLIC PANEL CMP 9 IRON (FE), TOTAL TIBC, & % SATURATION LIPID PANEL VITAMIN B12 (SERUM) VITAMIN D, 25-HYDROXY ROUTINE VENIPUNCTURE IMMUN ADMIN (INC PERCUTANEOUS) SINGLE, F IRST INJ Flu Vac, quad (RIV4), Preservative And A ntibiotic Free IM PREVENTATIVE-EST: 40-64 BODY MASS INDEX DOCD SYST BP GE 130 - 139MM HG DIAST BP < 80 MM HG Advance Directives Directive Yes / No Effective Date File Name Life Support Not Answered N/A N/A Intubation Not Answered N/A N/A Antibiotics Not Answered N/A N/A IV Fluid Support Not Answered N/A N/A Tube Feed Not Answered N/A N/A Other Directive N/A N/A WARNING:The information contained in this section is historical and is provided for information only and does not constitute a legal document or any assurance that the information is still accurate. Please verify the information with the de la cruz of the legal document before using it for clinical purposes. Encounters Encounter Description Practice Location Reason(s) For Visit Diagnoses Date Provider Providers Copied on Encounter [facility], [address], [place], [place], [address] , tel: [phone] [facility] No Information 3 James Pierce. [address] [place] [address] [address] , [place], [place], [address] , . tel: [phone] [facility], [address], [place], [place], [address] , [place] tel: [phone] [facility] No Information 2 Shaina Jimenez. [address] [place] [address], [facility] [address] , [place], [place], [address] , . tel: [phone] [facility], [address], [place], [place], [address] , tel: [phone] [facility] No Information 2 Shaina Jimenez. [address] [place] [address], [address], [place], [place], [address] , . tel: [phone] [facility], [address], [place], [place], [address] , tel: [phone] [facility] No Information 2 James Pierce. [address] [place] [address], [address], [place], [place], [address] , . tel: [phone] [facility], [address], [place], [place], [address] , tel: [phone] [facility] No Information 1 James Pierce. [address] [place] [address], [address], [place], [place], [address] , . tel: [phone] [facility], [address], [place], [place], [address] , tel: [phone] [facility] No Information 1 James Pierce. [address] [place] [address], [address], [place], [place], [address] , . tel: [phone] [facility], [address], [place], [place], [address] , tel: [phone] [facility] Medicare preventive (chief complaint)C hronic Conditions (chief complaint) Body mass index [BMI] 38.0-38.9, adultMedicare annual wellness visit, subsequentPrimary hypertensionCoronary artery disease involving hoopa coronary artery of hoopa heart without angina pectorisMixed hyperlipidemiaMorbid obesityNon-seasonal allergic rhinitis due to other allergic triggerOSA (obstructive sleep apnea)Vitamin D deficiencyIron deficiency anemia, unspecified iron deficiency anemia type 1 [address]. [address] [place] [address], [address], [place], [place], [address] , . tel: [phone] Referring Provider: Stan Ramirez, [address] [place] [address] [address], [place], [address] . tel:[phone] [facility], [address], [place], [place], [address] , tel: [phone] [facility] Right flank pain 1 James Pierce. [address] [place] [address], [address], [place], [place], [address] , . [phone] OFFICE [facility], [address], [place], [place], [address] , tel: [phone] [facility] pain right back -intermitte nt (chief complaint)C hronic Conditions (chief complaint) Body mass index (BMI) 39.0-39.9, adultRight flank painMorbid obesityCoronary artery disease involving hoopa coronary artery of hoopa heart without angina pectorisOSA (obstructive sleep apnea)Essential hypertension 1 Shaina Jimenez. [address] [place] [address], [address] , [place], [place], [address] , . tel: [phone] Referring Provider: Stan Ramirez, [address] [place] [address] [address] , [place], [address] . tel:[phone] [facility], [address], [place], [place], [address] , tel: [phone] [place] Medicare preventive (chief complaint)C hronic Conditions (chief complaint)r ectal bleeding (chief complaint)f atigue (chief complaint) Medicare annual wellness visit, subsequentOSA (obstructive sleep apnea)Coronary artery disease involving hoopa coronary artery of hoopa heart without angina pectorisMixed hyperlipidemiaSeason al allergic rhinitis due to pollenRectal bleedingFatigue, unspecified typeMorbid obesityBody mass index (BMI) 39.0-39.9, adult Oct- 0 Shaina Jimenez. [address] [place] [address], [address] , [place], [place], [address] , . tel:[phone] Referring Provider: Stan Ramirez [address] [place] [address] [address] , [place], [address] . tel:[phone] PREVENTATIVE -EST: 40-64 [facility], [address], [place], [place], [address] , tel: [phone] [facility] preventive exam (chief complaint)C hronic Conditions (chief complaint) Gastroesophageal reflux disease without esophagitisOSA (obstructive sleep apnea)Mixed hyperlipidemiaEncoun ter for preventive health examinationCoronary artery disease involving hoopa coronary artery of hoopa heart without angina pectorisVitamin D deficiencyOther iron deficiency anemiaOther fatigueInfluenza vaccine neededBody mass index (BMI) 40.0-44.9, adultMorbid (severe) obesity due to excess caloriesNon-seasonal allergic rhinitis due to other allergic trigger Shaina Jimenez. [address] [place] [address], [address], [place], [place], [address] , . tel: [phone] Referring Provider: Stan Ramirez [address] [place] [address] [address], [place], [address] . tel:[phone] [facility], [address], [place], [place], [address] , tel: [phone] [facility] Body mass index (BMI) 40.0-44.9, adultMorbid (severe) obesity due to excess caloriesAcute recurrent maxillary sinusitisCoronary artery disease involving hoopa coronary artery of hoopa heart without angina pectorisOSA (obstructive sleep apnea)Mood swings Shaina Barbara. [address] [place] [address], [address], [place], [place], [address] , . tel: [phone] Referring Provider: Stan Ramirez [address] [place] [address] [address], [place], [address] . tel:[phone] [facility], [address], [place], [place], [address] , tel: [phone] [facility] Coronary artery disease involving hoopa coronary artery of hoopa heart without angina pectorisFemale climactericMixed hyperlipidemiaMorbid obesityEncounter for preventive health examinationOSA (obstructive sleep apnea)Non-seasonal allergic rhinitis, unspecified triggerBody mass index (BMI) 39.0-39.9, adultURI, acuteMood changes Bardsteven Galindoa. [address] [place] [address], [address], [place], [place], [address] , . tel: [phone] Referring Provider: Stan Ramirez [address] [place] [address] [address], [place], [address] . tel:[phone] [facility], [address], [place], [place], [address] , tel: [phone] [facility] Routine medical examCoronary artery disease involving hoopa coronary artery of hoopa heart without angina pectorisObesity (BMI 30-39.9)[facility]rer for immunizationHyperlip idemia, unspecified [address], [address], [place], [place], [address] . tel: [phone] Referring Provider: Stan Ramirez, [address] [place] [address] [address], [place], [address] . tel:[phone] [facility], [address], [place], [place], [address] , tel: [phone] [facility] Fatigue, unspecified typeMood changesSeasonal allergic rhinitis, unspecified allergic rhinitis triggerChange in hearing, bilateralOSA (obstructive sleep apnea)Coronary artery disease involving hoopa coronary artery of hoopa heart without angina pectoris Dane Susan. [address] , [address], [place], [place], [address] . tel: [phone] Referring Provider: Stan Ramirez [address] [place] [address] [address], [place], [address] . tel:[phone] [facility], [address], [place], [place], [address] , tel: [phone] [facility] Hyperlipidemia, unspecifiedAtheroscl erotic heart disease of hoopa coronary artery without angina pectorisAllergic rhinitis, unspecifiedCoughApht hous stomatitisUpper respiratory tract infection, unspecified type Dane Susan. [address], [place], [place], [address] . tel: [phone] Referring Provider: Stan Ramirez [address] [place] [address] [address], [place], [address] . tel:[phone] [facility], [address], [place], [address] , tel: [phone] [facility] Atherosclerotic heart disease of hoopa coronary artery without angina pectorisHyperlipidem ia, unspecifiedAllergic rhinitis, unspecifiedObstructi ve sleep apnea (adult) (pediatric)Acute sinusitis, recurrence not specified, unspecified locationRoutine medical exam 6 Dane Susan. [address], [place], [place], [address] . tel: [phone] Referring Provider: Stan Ramirez, [address] [place] [address] [address] , [place], [address] . tel:[phone] [facility], [address], [place], [place], [address] , tel: [phone] [facility] Herpes zoster without complicationAcute recurrent maxillary sinusitis Dane Susan. [address] , [facility] [address], [place], [place], [address] . tel: [phone] Referring Provider: Stan Ramirez, [address] [place] [address] [address] , [place], [address] . tel:[phone] [facility], [address], [place], [place], [address] , tel: [phone] [facility] Acute frontal sinusitis, recurrence not specified Dane Susan. [address] , [facility] [address], [place], [place], [address] . tel: [phone] Referring Provider: Stan Ramirez, [address] [place] [address] [address] , [place], [address] . tel:[phone] [facility], [address], [place], [place], [address] , tel: [phone] [facility] Routine physical examinationCAD (coronary artery disease)Hyperlipidem iaOSA (obstructive sleep apnea)Ex-smokerAller gic rhinitisPreoperative clearanceRotator cuff injury 5 Dane Susan. [address] , [place], [place], [address] . tel: [phone] Referring Provider: Stan Ramirez [address] [place] [address] [address] , [place], [address] . tel:[phone] [facility], [address], [place], [place], [address] , tel: [phone] [facility] Coronary atherosclerosis of unspecified type of vessel, hoopa or graftOther and unspecified hyperlipidemiaUnspec ified sleep apneaPersonal history of tobacco use 5 Dane Susan. [address] , [address], [place], [place], [address] . tel: [phone] Referring Provider: Stan Ramirez, [address] [place] [address] [address], [place], [address] . tel:[phone] [facility], [address], [place], [place], [address] , tel: [phone] [facility] S/P CABGOther and unspecified hyperlipidemiaCAD, UnspecifiedSleep Apnea, ObstructiveTobacco Abuse, History ofRoutine Medical ExamMaxillary sinusitisPersonal history of noncompliance with medical treatment, presenting hazards to healthRoutine Medical Exam 4 Dane Davis. [address] , [address], [place], [place], [address] . tel: [phone] Referring Provider: Stan Ramirez, [address] [place] [address] [address], [place], [address] . tel:[phone] [facility], [address], [place], [place], [address] , tel: [phone] [facility] CoughPersonal history of tobacco useMenopausal or female climacteric states 3 Shaina Jimenez. [address] , [address], [place], [place], [address] , . tel: [phone] Referring Provider: Stan Ramirez, [address] [place] [address] [address], [place], [address] . tel:[phone] [facility], [address], [place], [place], [address] , tel: [phone] [facility] Obstructive sleep apnea (adult)(pediatric)Pe rsonal history of tobacco useVasovagal syncope 2 James Pierce. [address] [place] [address], [address], [place], [place], [address] , . tel: [phone] Referring Provider: Stan Ramirez [address] [place] [address] [address], [place], [address] . tel:[phone] [facility] [employer], [address], [place], [place], [address] , tel: [phone] [facility] FatigueSinusitis acuteOther and unspecified hyperlipidemiaCorona ry atherosclerosis of unspecified type of vessel, hoopa or graftPersonal history of tobacco use Dane Davis. [address] , [address], [place], [place], [address] . tel: [phone] Referring Provider: Stan Ramirez [address] [place] [address] [address], [place], [address] . tel:[phone] [facility] [address], [place], [place], [address] , tel: [phone] [facility] Dizzy spellsMenopausal or female climacteric states Dane Davis. [address] , [facility] [address], [place], [place], [address] . tel: [phone] Referring Provider: Stan Ramirez [address] [place] [address] [address], [place], [address] . tel:[phone] [facility] [employer], [address], [place], [place], [address] , tel: [phone] [facility] Routine general medical examination at a health care facilityScreening for diabetes mellitusScreening for lipoid disordersOther screening mammogramNEED FOR PROPHYLACTIC VACCINATION AND INOCULATION, INFLUENZAUnspecified arthropathy involving shoulder regionOther and unspecified disc disorder of lumbar regionOther specified disorders of joint of multiple sitesOther and unspecified disc disorder of lumbar regionPain in joint/arthralgia Shoulder regionCervicalgia 1 D[address]. [address], [address], [place], [place], [address] . tel: [phone] Referring Provider: Stan Ramirez [address] [place] [address] [address], [place], [address] . tel:[phone] Family History Family Member Type Diagnosis Age At Onset Sister Problem (finding) malignant neop lasm of breast in first degree relative Sister Problem (finding) glaucoma Sister Problem (finding) Alive and well Brother Problem (finding) malignant neoplasm of p harynx Sister Problem (finding) malignant tumor of rect um Mother Problem (finding) malignant neoplasm of l bren 74 Mother Problem (finding) raised blood lipids Immunizations Vaccine Date Status Comments [employer] COVID19 Vaccine, 0.3mL per dose, 2 doses, administered 21 days apart administered Note: [facility] ; So urce: Source Unspecified Flublok, quadrivalent, preservative free, 0.5mL dosage administered Source: New Immuniza tion Record Flublok, quadrivalent, preservative free, 0.5mL dosage administered Source: New Immuniza tion Record Flublok, quadrivalent, preservative free, 0.5mL dosage administered Source: Source Unspe cified Tdap administered Source: New Imm unization Record Fluzone Quad , preservative free, split virus, 0.5mL dosage administered Source: New Immuniza tion Record Flu (split) (3 yrs or older) administered Source: New Immunization Record Payers Payer name Insurance type Covered alliance party ID Authoriza tion(s) MEDICARE MB [id number] AARP MDCR SUPPLEMENT ONLY CI [id number] [facility] CI [id number] [facility] CI [id number] [facility] CI [id number] [facility] CI [id number] Social History Type Description Quantity Date Captured Comments Alcohol Use Details Unknown Caffeine Use Details Unknown Tobacco Use Status No Information Smoking Status No Information Sex Female Chief Complaint And Reason For Visit No Information Reason For Referral Reason For Referral No Information Plan Of Treatment Date Type Action Status Goal Dietary manageme nt education, guidance, and counseling completed Goal Dietary manageme nt education, guidance, and counseling completed Goal Tobacco cessation counseling completed Goal Tobacco cessation counseling completed Goal Dietary manageme nt education, guidance, and counseling completed Goal Dietary manageme nt education, guidance, and counseling completed Goal Tobacco cessation counseling completed Future Order: Radiology Order CT , abdomen and pelvis, without contrast ([id number]), Sent on: Sent Future Order: Lab Order TSH - Th yroid Stimulating Hormone ([id number]), Collected on: , Sent on: Sent Future Order: Lab Order CBC-NO D IFF ([id number]), Collected on: , Sent on: Sent Future Order: Lab Order Comprehe nsive Metabolic (CMP) ([id number]), Collected on: , Sent on: Sent Future Order: Lab Order Magnesiu m ([id number]), Collected on: , Sent on: Sent History Of Present Illness Encounter Date Complaint History Of Prese nt Illness Medicare preventive A Health Ris k Assessment has been performed and reviewed. The patient has not felt depressed and has had interest and pleasure doing things recently. Functional Status: (Functional status has not changed) on 09/20/2021. SLUMS assessment completed, with a total score of 30, Normal. Cognitive Status: (Cognitive status has not changed) on 09/20/2021. The ''Up and Go'' test took less than 30 seconds and the patient does not need help with activities of daily living. The patient is not at risk for falls. The patient has not fallen in the last year. The fall(s) did not result in injury. Patient's activity level is sedentary. Patient exercises occasionally. The patient has smoke detectors, carbon monoxide detectors, gas heating in the home. Patient's home has not been tested for radon. Patient reports using a seatbelt in vehicles. Patient reports a healthy diet. Patient reports recent weight loss of 7 lbs, 3.18 kgs over 9 Months. Patient reports getting calcium from dietary sources. Patient reports taking a vitamin D supplement. Patient does not take a multivitamin. Patient does not take folic acid. Relevant history is positive for alcohol use. Relevant history is negative for passive vaping exposure and passive smoke exposure. Patient is a former tobacco user. In the past year the patient has had 4 or more drinks in a day 0 time(s). Screening services were reviewed and updated. Chronic Conditions *See Chronic Conditions HPI Chronic Conditions *See Chronic Conditions HPI pain right back -intermittent Sh e states she has had pain intermittently for quite a while (maybe since Sep). but has been constant for past 3 days. She states she thought it could be need for bowel movement- initially- but has had 4 bowel movements since Monday. She notes she has been taking AZO, thinking it might be uti. Does not think AZO has made any change in pain recently. She notes sleep is disturbed. Medicare preventive The patient has not felt depressed and has had interest and pleasure doing things recently. SLUMS assessment completed, with a total score of 30, Normal. Cognitive Status: (Cognitive status has not changed) on 09/17/2020. The ''Up and Go'' test took less than 30 seconds and the patient does not need help with activities of daily living. The patient is at risk for falls. The patient has fallen 5 times in the last year. The fall(s) did not result in injury. Patient's activity level is sedentary. Patient exercises occasionally. The patient has smoke detectors, carbon monoxide detectors, gas heating in the home. Patient's home has not been tested for radon. Patient reports using a seatbelt in vehicles. Patient reports a healthy diet. Patient reports recent weight loss of 8 lbs, 3.64 kgs over 12 Months. Patient reports getting calcium from dietary sources. Patient reports taking a vitamin D supplement. Patient does not take a multivitamin. Relevant history is positive for alcohol use. Relevant history is negative for passive vaping exposure and passive smoke exposure. Patient is a former tobacco user. In the past year the patient has had 4 or more drinks in a day 0 time(s). Screening services were reviewed and updated. rectal bleeding She notes she yee s had episodes of rectal bleeding in the past month. She notes she has history of internal hemorrhoids. She states there is blood in the water of the toilet as well as on tissue. She states she has some change in caliber of her stool -'sort of skinny. She notes she has called Dr Short's office for an appointment. Her last colonoscopy was in Sep 2017. Chronic Conditions fatigue She states she f eels tired, a lot of the time. States she thinks part may be due to her spap not working as well (she is going to contact her provider for assistance.). She notes she has been anemic in the past, received iron infusion in Dr Del Valle's office. Chronic Conditions *See Chronic Conditions HPI preventive exam Currently pregna nt: not pertinent. : 2. Parity: Term: 2. Livin. The patient states she uses partial hysterectomy for control. Her menses is absent. Negative for: breast discharge, breast lump(s) and breast pain. Positive for: breast self exam.Postmenopausal: Age: 46, Type: partial hysterectomy. Pertinent negatives include abnormal vaginal bleeding. Diet healthy.The patient states her exercise level is sedentary. The patient no longer uses tobacco. Tobacco cessation has been discussed. She has not been exposed to passive smoke. She has not been exposed to passive vaping. She does drink alcohol. Functional Status Date Functional Assessmen t No Information Instructions Date Instruction Additional Infor queta She is here for her Medicare preventive exam. States she is doing pretty well. 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 She no longer is a smoker, very rarely drinks alcohol- < 1 per year she states. She had Covid last Oct, she had first Covid vaccine 09/06, scheduled for 2nd one 09/27. She is due for mammogram- advised not to schedule until 4-6 weeks post 2nd Covid injection. She denies falls, tries to follow healthy diet most of the time. Related to Medicare annual wellness visit, subsequent Checking labs today, will send results to Dr Del Valle for his records. Related to Iron deficiency anemia, unspecified iron deficiency anemia type Labs are drawn for f ollow up of chronic condition, continue use of present medication. Related to Vitamin D deficiency She will continue to use nightly, aware of importance to overall health for continual use. Related to ELSIE (obstructive sleep apnea) Continue present raoul n of care, advise if symptoms worsen. Related to Non-seasonal allergic rhinitis due to other allergic trigger Encouraged to watch diet more closely, increase exercise to daily as able. Related to Morbid obesity Labs are drawn for f darinlow up of chronic conditions Related to Mixed hyperlipidemia Status: Meeting [place] tment plan goals. Your goal is to reduce risks associated with your heart disease. No barriers to goal achievement have been identified. Related to Coronary artery disease involving hoopa coronary artery of hoopa heart without angina pectoris Checking labs today, she will monitor blood pressure with change of medication. Related to Primary hypertension Prescribed activity/ exercise education Related to Body mass index (BMI) 38.0-38.9, adult Disease process Dietary management e ducation, guidance, and counseling Related to Body mass index (BMI) 38.0-38.9, adult Counseled on dietary changes She states she has h ad pain intermittently for quite a while (maybe since Sep). but has been constant for past 3 days. She states she thought it could be need for bowel movement- initially- but has had 4 bowel movements since Monday. She notes she has been taking AZO, thinking it might be uti. Does not think AZO has made any change in pain recently. She notes sleep is disturbed. Related to Right flank pain Encouraged to contin ue current medications as prescribed. Continue watching diet and exercising. Related to Essential hypertension She will continue pr esent plan of care. She notes she needs some new equipment- she will call with problems. She will call her DME provider. Related to ELSIE (obstructive sleep apnea) Status: Able to self -manage condition. Goals: Your goal is to reduce risks associated with your heart disease. No barriers to goal achievement have been identified. Related to Coronary artery disease involving hoopa coronary artery of hoopa heart without angina pectoris States she tries to follow healthy diet but not real active. Related to Morbid obesity Dietary management e ducation, guidance, and counseling Related to Body mass index (BMI) 39.0-39.9, adult Disease process Prescribed activity/ exercise education Related to Body mass index (BMI) 39.0-39.9, adult Fall Risk Prevention Urinary Incontinence Encouraged to contin e to watch diet closely, increase exercise to daily as able. Related to Morbid obesity She is here today fo r a Medicare preventive exam. She is accompanied by her of 43 years. She is no longer working. She is no longer a smoker, occasionally has alcohol. She sees eye regularly. She had mammogram in Sep 2019, colonoscopy in 2016. She and her manage their home. She notes some sleep difficulty- admits to large intake of caffeine daily- 'at least 4-5 cans of Pepsi and 2 plus cups of coffee. She also states cpap is not working 'right'. She notes difficulty with mask -she will contact the provider. Related to Medicare annual wellness visit, subsequent She states she feels tired, a lot of the time. States she thinks part may be due to her spap not working as well (she is going to contact her provider for assistance.). She notes she has been anemic in the past, received iron infusion in Dr Del Valle's office. Related to Fatigue, unspecified type She notes she has yee d episodes of rectal bleeding in the past month. She notes she has history of internal hemorrhoids. She states there is blood in the water of the toilet as well as on tissue. She states she has some change in caliber of her stool -'sort of skinny. She notes she has called Dr Short's office for an appointment. Her last colonoscopy was in Sep 2017. Related to Rectal bleeding will continue presen t plan of care, will advise if symptoms worsen. Related to Seasonal allergic rhinitis due to pollen Labs are drawn for f ollow up of chronic conditions Related to Mixed hyperlipidemia Status: Able to self -manage condition. Goals: Your goal is to reduce risks associated with your heart disease. No barriers to goal achievement have been identified. Labs are drawn for follow up of chronic conditions Related to Coronary artery disease involving hoopa coronary artery of hoopa heart without angina pectoris She will continue us e of cpap and will contact her DME provider about replacing equipment. Related to ELSIE (obstructive sleep apnea) Urinary Incontinence Prescribed activity/ exercise education Related to Body mass index (BMI) 39.0-39.9, adult Fall Risk Prevention Dietary management e ducation, guidance, and counseling Related to Body mass index (BMI) 39.0-39.9, adult Disease process she states she gets flu vaccine yearly. Discussed Shingrix availability in the community pharmacy Related to Influenza vaccine needed she notes she feels fatigued at times. Related to Other fatigue She is here today fo r a preventive exam. She is , no longer smokes. She rarely drinks alcohol. She is up to date on colonoscopy, last mammogram in Jul 2018-notes she will do 'soon'. She sees Dr Del Valle for cardiac follow up. Related to Encounter for preventive health examination Rx for montelukast s ent to pharmacy. To advise of progress. Related to Non-seasonal allergic rhinitis due to other allergic trigger Labs are drawn for f ollow up of chronic condition. Will send lab results to Dr Del Valle's office for his use. Related to Other iron deficiency anemia Encouraged to watch diet more closely, increase exercise to daily as able. Related to Morbid (severe) obesity due to excess calories Labs are drawn for f ollow up of chronic conditions Related to Vitamin D deficiency Labs are drawn for f ollow up of chronic condition. Continue to watch diet for fats, increase exercise as able. Related to Mixed hyperlipidemia Status: Able to self -manage condition. Goals: Your goal is to reduce risks associated with your heart disease. No barriers to goal achievement have been identified. Related to Coronary artery disease involving hoopa coronary artery of hoopa heart without angina pectoris She will contact pro vider of DME and ask to contact this office. Related to ELSIE (obstructive sleep apnea) Will rx famotidine f or her- she is to call with progress, consider upper endoscopy. Related to Gastroesophageal reflux disease without esophagitis Prescribed activity/ exercise education Related to Body mass index (BMI) 40.0-44.9, adult Disease process Dietary management e ducation, guidance, and counseling Related to Body mass index (BMI) 40.0-44.9, adult Assessments Type Assessment Date No Information Patient Care Teams Name Effective Dates (start - stop) Status Members No Information
--- OUTSIDE RECORDS SUMMARY | 2025-04-24 15:59 | XMS_ITS | CONTINUITY OF CARE DOCUMENT ---
Author Name jackie, jackie Address Unknown Organization [facility] Address [address] [address] [place] [address] Phone [phone] Care Team Providers Care Sealant Mixer Name Role Phone Jose Luis Del Valle MD Unavailable KEON HERNANDEZ, YUMIKO F Unavailable [phone] KEON HERNANDEZ, YUMIKO F Unavailable [phone] PROBLEMS Condition Status Date Provider Notes Valvular heart disease active Jose Luis Del Valle MD Hypothyroidism active Jose Luis Del Valle MD IRON DEFICIENCY active Jose Luis Del Valle MD Vitamin D deficiency active Jose Luis Lugo D ISCHEMIA;NEG NUC 08, COMPLETE REVASC 99 BY CATH completed - Jose Luis Del Valle MD FAMILY HISTORY OF HEART DISEASE active Jose Luis Del Valle MD S/P CABG; YE BY DR. 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 Jose Luis Del Valle MD Hyperlipidemia; with high crp, lpa 182 active Jose Luis Del Valle MD intool to stati n and zeita DIZZINESS; completed - Jose Luis Del Valle MD CHEST PAIN-TYPE TO BE DETERMINED;PABLO BECERRA completed - Jose Luis Del Valle MD Tachy antwon syndrome; active Jose Luis Del Valle MD av block first Diastolic CHF active Jose Luis Del Valle MD did o nt erica jardince Screening active Jose Luis Del Valle MD Diverticulosis, colon active Jose Luis Del Valle MD Syncope completed - Jose Luis Del Valle MD Obesity active Jose Luis Del Valle MD Edema completed - Jose Luis Del Valle MD Leg pain completed - Jose Luis Del Valle MD HTN essential active Jose Luis Del Valle MD covid 19;AUG 2020;had vaccine active Jose Luis Del Valle MD Elevated LFT's active Jose Luis Del Valle MD Leg edema, bilateral completed - Jose Luis Del Valle MD Bronchitis completed - Jose Luis Del Valle MD ENCOUNTERS Date Type Provider Location Encounter Diag nosis - In-person encounter Office Visit [facility] ScreeningBronchitis - In-person encounter Office Visit [facility] Hyperlipidemia; with high crp, lpa 182 - In-person encounter Office Visit [facility] Hemiblock, left ante rior with IRBBB and first degree AV blockHyperlipidemia; with high crp, lpa 182Tachy antwon syndrome;Elevated LFT's - In-person encounter Office Visit [facility] CADTachy antwon syndrome;Diastolic CHFLeg edema, bilateral - In-person encounter Office Visit Saulius Kalvaitis [facility] - In-person encounter Office Visit Jose Luis Del Valle MD [facility] CADcovid AUG 2020 ;had vaccineElevated LFT's - In-person encounter Office Visit Jose Luis Del Valle MD [facility] covid 19AUG 2020;yee d vaccine - In-person encounter Office Visit Jose Luis Del Valle MD [facility] Tachy antwon syndrome;EdemaLeg painHTN essential - In-person encounter Office Visit Jose Luis Del Valle MD [facility] - In-person encounter Office Visit Manuelito Howell MD [facility] S/P CABG; YE BY DR. HERNANDEZ 93, OPEN 99Hyperlipidemia; with high crp, lpa 182 - In-person encounter Office Visit Jose Luis Del Valle MD [facility] CADScreening - In-person encounter Office Visit Jose Luis Del Valle MD [facility] - In-person encounter Office Visit Jose Luis Del Valle MD [facility] CADTobacco use, quitPVD;NEG ANGIO 98Hyperlipidemia; with high crp, lpa 182DIZZINESS;Tachy antwon syndrome;SyncopeObesity - In-person encounter Office Visit Jose Luis Del Valle MD [facility] ISCHEMIA;NEG NUC 08, COMPLETE REVASC 99 BY CATHCADSLEEP APNEA;MITRAL VALVE PROLAPSE;MILDHyperlipidemi a; with high crp, lpa 182CHEST PAIN-TYPE TO BE DETERMINED;WIIL WUTachy antwon syndrome;Diastolic CHFScreeningDiverticulosis , colon - In-person encounter Office Visit Jose Luis Del Valle MD [facility] FAMILY HISTORY OF HE ART DISEASES/P CABG; YE BY DR. HERNANDEZ 93, OPEN 99CADTobacco use, quitSLEEP APNEA;Hemiblock, left anterior with IRBBB and first degree AV blockHyperlipidemia; with high crp, lpa 182DIZZINESS; VITAL SIGNS Date Observation Value Provider Body Mass Index (Ratio) 43.77 kg/m2 Jayme Del Valle MD blood pressure, diastolic 82 mm[Hg] Saundra nkLog blood pressure, systolic 142 mm[Hg] Giovanna kLogck pulse rate 64 /min Mariia Paul blood pressure, diastolic 82 mm[Hg] Al Paul blood pressure, systolic 142 mm[Hg] Kasey Paul respiratory rate E&M 20 /min Mariia Paul oxygen saturation, oximetry 98 % Mariia Paul weight E&M 259 [lb_av] Mariia Paul blood pressure, cuff size large Al Paul height E&M 64.5 [in_i] Mariia Paul Body Mass Index (Ratio) 42.25 kg/m2 Jayme Del Valle MD blood pressure, diastolic 82 mm[Hg] [facility] Haile blood pressure, systolic 145 mm[Hg] Caren Haile oxygen saturation, oximetry 98 % Mary Haile pulse rate 74 /min Mary Haile weight E&M 250 [lb_av] Mary Haile height E&M 64.5 [in_i] Mary Haile Body Mass Index (Ratio) 40.56 kg/m2 Jayme Del Valle MD weight E&M 240 [lb_av] Chloe jennings respiratory rate E&M 16 /min Sylvia Mace blood pressure, cuff size large Rebecca Mace height E&M 64.5 [in_i] Chloe jennings Body Mass Index (Ratio) 39.88 kg/m2 Jayme Del Valle MD respiratory rate E&M 17 /min Jeannette Marte blood pressure, diastolic 79 mm[Hg] Kori Marte blood pressure, systolic 129 mm[Hg] Marylou Marte oxygen saturation, oximetry 96 % Jeannette aMrte pulse rate 84 /min Jeannette Marte weight E&M 236 [lb_av] Jeannette Marte height E&M 64.5 [in_i] Jeannette Marte Body Mass Index (Ratio) 38.70 kg/m2 Jim Jayjay blood pressure, diastolic 96 mm[Hg] Ke rri Gruenenfelder blood pressure, systolic 157 mm[Hg] Ker ri Gruenenfelder blood pressure, cuff size large Ke rri Gruenenfelder oxygen saturation, oximetry 97 % Lizz Groranenfelder respiratory rate E&M 18 /min Lizz de la vegaelder pulse rate 62 /min Lizz Gruenenfe lder weight E&M 229 [lb_av] Lizz Gruenenfe lder height E&M 64.5 [in_i] Lizz Gruenenfe lder Body Mass Index (Ratio) 39.03 kg/m2 Jayme Del Valle MD blood pressure, diastolic 98 mm[Hg] Saundra nkLogic blood pressure, systolic 148 mm[Hg] Giovanna kLogic blood pressure, diastolic 98 mm[Hg] Sa ra Mora blood pressure, systolic 148 mm[Hg] Angel Luis a Mora oxygen saturation, oximetry 98 % Martha Mora respiratory rate E&M 18 /min Martha Si ms pulse rate 72 /min Martha Mora weight E&M 231 [lb_av] Martha Mora blood pressure, cuff size regular Sa ra Mora height E&M 64.5 [in_i] Martha Mora Body Mass Index (Ratio) 39.88 kg/m2 Jayme Del Valle MD blood pressure, cuff size regular Kr isty [place] pulse rate 65 /min Nuris [place] oxygen saturation, oximetry 98 % Nuris [place] blood pressure, diastolic 70 mm[Hg] Kr isty Freddy blood pressure, systolic 120 mm[Hg] Kri sty [place] respiratory rate E&M 20 /min Nuris Freddy weight E&M 236 [lb_av] Nuris Freddy blood pressure, resting No Daniel ty Freddy height E&M 64.5 [in_i] Nuris Freddy Body Mass Index (Ratio) 39.71 kg/m2 Jayme Del Valle MD blood pressure, cuff size regular Kr isty Freddy blood pressure, diastolic 78 mm[Hg] Kr isty [place] blood pressure, systolic 132 mm[Hg] Kri sty [place] oxygen saturation, oximetry 98 % Nuris Freddy pulse rate 74 /min Nuris Freddy respiratory rate E&M 18 /min Nuris Freddy weight E&M 235 [lb_av] Nuris [place] height E&M 64.5 [in_i] Nuris [place] Body Mass Index (Ratio) 40.56 kg/m2 Jayme Del Valle MD oxygen saturation, oximetry 97 % Chastity Brandon blood pressure, diastolic 80 mm[Hg] Ch astity Brandon blood pressure, systolic 130 mm[Hg] Kate stity Brandon respiratory rate E&M 16 /min Chastit y Brandon pulse rate 68 /min Chastity Brandon weight E&M 240 [lb_av] Chastity Brandon height E&M 64.5 [in_i] Chastity Brandon Body Mass Index (Ratio) 40.56 kg/m2 Lexie Howell MD blood pressure, diastolic 70 mm[Hg] Br ittany Block blood pressure, systolic 124 mm[Hg] Joslyn ttany Block oxygen saturation, oximetry 98 % Kristen Block respiratory rate E&M 16 /min Brittan y Block pulse rate 71 /min Kristen Block weight E&M 240 [lb_av] Kristen Block blood pressure, resting Yes [facility] Block height E&M 64.5 [in_i] [facility] Body Mass Index (Ratio) 41.40 kg/m2 [facility] blood pressure, cuff size regular berta Demecs RN blood pressure, diastolic 68 mm[Hg] berta Demecs RN blood pressure, systolic 130 mm[Hg] [facility] sta Demecs RN oxygen saturation, oximetry 98 % Washita Demecs RN respiratory rate E&M 16 /min Kecia Demecs RN pulse rate 62 /min Washita Demecs R N weight E&M 245 [lb_av] Kecia Demecs R N blood pressure, cuff size large berta Demecs RN blood pressure, diastolic 70 mm[Hg] berta Demecs RN blood pressure, systolic 140 mm[Hg] [facility] sta Demecs RN oxygen saturation, oximetry 98 % Kecia Demecs RN respiratory rate E&M 18 /min Kecia Demecs RN pulse rate 62 /min Washita Demecs R N Body Mass Index (Ratio) 40.22 kg/m2 Jayme Del Valle MD blood pressure, cuff size regular Juan Hayes blood pressure, diastolic 80 mm[Hg] Juan Leyvaby blood pressure, systolic 150 mm[Hg] Ld Leyva pulse rate 74 /min Nuris Leyvaby oxygen saturation, oximetry 96 % Nuris Leyva respiratory rate E&M 18 /min Nuris Leyvaby weight E&M 238 [lb_av] Nuris Leyva height E&M 64.5 [in_i] Nuris Freddy Body Mass Index (Ratio) 39.37 kg/m2 Jayme Del Valle MD oxygen saturation, oximetry 97 % [facility] pressure, diastolic 82 mm[Hg] Va kimberlee Flanagan LANDING MAN blood pressure, systolic 124 mm[Hg] Eliza Flanagan LANDING MAN respiratory rate E&M 16 /min Chastit y Brandon pulse rate 69 /min Chastity Brandon weight E&M 233 [lb_av] Chastity Brandon height E&M 64.5 [in_i] [facility] Body Mass Index (Ratio) 38.87 kg/m2 Jayme Del Valle MD oxygen saturation, oximetry 96 % [facility] blood pressure, diastolic 82 mm[Hg] Ch astity Brandon blood pressure, systolic 138 mm[Hg] Kate stity Brandon respiratory rate E&M 16 /min Chastit y Brandon pulse rate 75 /min Chastity Brandon weight E&M 230 [lb_av] Chastity Brandon height E&M 64.5 [in_i] Chastity Brandon Body Mass Index (Ratio) 39.37 kg/m2 Jayme Del Valle MD respiratory rate E&M 18 /min Consuelo Hanna pulse rate 61 /min Consuelo Hanna oxygen saturation, oximetry 95 % Consuelo Hanna blood pressure, diastolic 70 mm[Hg] Brennen Hanna blood pressure, systolic 140 mm[Hg] Mac Hanna height E&M 64.5 [in_i] Consuelo Hanna weight E&M 233 [lb_av] Consuelo Hanna blood pressure, diastolic 82 mm[Hg] Raciel Day blood pressure, systolic 122 mm[Hg] Abhay Day pulse rate 84 /min Bisi Day oxygen saturation, oximetry 99 % Bisi Day respiratory rate E&M 16 /min Bisi Day weight E&M 206 [lb_av] Bisi Day ALLERGIES Allergy Name Onset Date Reaction Criticality Status ADULT ASPIRIN REGIMEN inbgigestion Low Critical ity suspended ZETIA Low Criticality active LIPITOR hair loss hair loss Low Criticality active JARDIANCE Low Criticality active XARELTO Low Criticality active COREG Low Criticality active TOPAMAX Low Criticality active ADIPEX-P Low Criticality active DYE Low Criticality active BETA BLOCKERS Low Criticality active RESULTS Date Observation Value Provider Reference Range Interpretation Location C-reactive protein, by highly sensitive test 4.9 mg/L [facility] High NT-pro BNP 43 [facility] Normal calcium, serum 9.2 mg/dL [facility] 8.6-10.4 Normal carbon dioxide, venous blood 27 mmol/L [facility] 20-32 Normal chloride, serum 105 mmol/L [facility] 98-110 Normal potassium, serum 4.3 mmol/L [facility] 3.5-5.3 Normal sodium, serum 139 mmol/L [facility] 135-146 Normal urea nitrogen/creatinine ratio, serum NOT APPLICABLE (calc) [facility] 6-22 2023/05 /13 creatinine, serum 0.73 mg/dL [facility] 0.50-1.05 Normal urea nitrogen, blood 12 mg/dL [facility] 7-25 Normal blood glucose, random 102 mg/dL [facility] 65-99 High cholesterol, non-HDL, total 145 MG/DL (CALC) [facility] <130 High cholesterol/HDL ratio, serum, percent 4.5 (calc) [facility] <5.0 Normal LDL cholesterol, serum 120 MG/DL (CALC) [facility] High triglyceride, serum, fasting 140 mg/dL [facility] <150 Normal HDL cholesterol, serum 42 mg/dL [facility] > OR = 50 Low cholesterol, serum 187 mg/dL [facility] <200 Normal C-reactive protein, by highly sensitive test 3.8 mg/L [facility] High calcium, serum 9.4 mg/dL [facility] 8.6-10.4 Normal carbon dioxide, venous blood 26 mmol/L [facility] 20-32 Normal chloride, serum 107 mmol/L [facility] 98-110 Normal potassium, serum 4.2 mmol/L [facility] 3.5-5.3 Normal sodium, serum 140 mmol/L [facility] 135-146 Normal urea nitrogen/creatinine ratio, serum NOT APPLICABLE (calc) [facility] - creatinine, serum 0.79 mg/dL [facility] 0.50-1.05 Normal urea nitrogen, blood 10 mg/dL [facility] 7-25 Normal blood glucose, random 97 mg/dL [facility] 65-99 Normal hepatitis C antibody, serum NON-REACTIVE [facility] NON-REACTIV E Normal hepatitis B core antibody, total NON-REACTIVE [facility] NON-REACTIV E Normal hepatitis B surface antigen NON-REACTIVE [facility] NON-REACTIV E Normal hepatitis B surface antibody REACTIVE [facility] NON-REACTIV E Abnormal hepatitis A antibody, total NON-REACTIVE [facility] NON-REACTIV E Normal microalbumin/creati nine ratio, urine 15 MCG/MG CREAT [facility] <30 Normal microalbumin/total urine volume 31 mg/L [facility] Units converted. See lab report for original value. Normal creatinine, random, urine 210 mg/dL [facility] 20-275 Normal cholesterol, non-HDL, total 96 MG/DL (CALC) [facility] <130 Normal cholesterol/HDL ratio, serum, percent 3.3 (calc) [facility] <5.0 Normal LDL cholesterol, serum 77 MG/DL (CALC) [facility] Normal triglyceride, serum, fasting 102 mg/dL [facility] <150 Normal HDL cholesterol, serum 41 mg/dL [facility] > OR = 50 Low cholesterol, serum 137 mg/dL [facility] <200 Normal LDL cholesterol, serum 101 mg/dL Manuelito Howell MD pro brain natriuretic peptide 156 pg/mL [facility] 0-287 ferritin, serum 85 ng/mL [facility] 15-150 D-dimer quantitative mcg/mL 1.51 MG/L FEU [facility] 0.00-0.49 High iron saturation percent, serum 23 % [facility] 15-55 iron, serum 70 ug/dL [facility] 27-139 iron binding capacity, unsaturated 235 ug/dL [facility] 598-918 7622/03 /19 iron binding capacity, total 305 ug/dL [facility] 438-321 5822/03 /19 free thyroxine index 1.8 [facility] 1.2-4.9 triiodothyronine resin uptake 22 % [facility] 24-39 Low thyroxine, serum, total 8.0 ug/dL [facility] 4.5-12.0 thyroid stimulating hormone, serum 3.280 u[IU]/mL [facility] 0.450-4.500 prothrombin time (patient) 10.9 s [facility] 9.1-12.0 international normalized ratio (INR) 1.0 [facility] 0.8-1.2 lipoprotein, beta, serum, point, quantitative, calculated 101 mg/dL [facility] 0-99 High very low density lipoproteins 19 mg/dL [facility] 5-40 HDL cholesterol, serum 41 mg/dL [facility] >39 triglyceride, serum, random 93 mg/dL [facility] 0-149 cholesterol, serum 161 mg/dL [facility] 120-469 8341/01 /08 iron saturation percent, serum 15 % [facility] 15-55 iron, serum 46 ug/dL [facility] 27-139 iron binding capacity, unsaturated 271 ug/dL [facility] 655-162 9933/01 /08 iron binding capacity, total 317 ug/dL [facility] 180-028 7978/01 /08 basophil count, absolute 0.1 x10E3/uL [facility] 0.0-0.2 Eosinophil Absolute Count 0.3 X10E3/UL [facility] 0.0-0.4 monocyte count, blood, automated 0.7 X10E3/UL [facility] 0.1-0.9 lymphocyte count, blood, automated 2.4 X10E3/UL [facility] 0.7-3.1 Absolute Neutrophils 4.0 X10E3/UL [facility] 1.4-7.0 basophils as percent of blood leukocytes 1 % [facility] Not Estab. eosinophils as percent of blood leukocytes 4 % [facility] Not Estab. monocytes as percent of blood leukocytes 10 % [facility] Not Estab. lymphocytes as percent of blood leukocytes 32 % [facility] Not Estab. neutrophils as percent of blood leukocytes 53 % [facility] Not Estab. platelet count 211 X10E3/UL [facility] 170-712 8423/01 /08 red blood cell distribution width 13.3 % [facility] 12.3-15.4 mean corpuscular hemoglobin concentration, RBC 32.6 G/DL [facility] 31.5-35.7 mean corpuscular hemoglobin, RBC 28.1 pg [facility] 26.6-33.0 mean corpuscular volume, RBC 86 fL [facility] 79-97 hematocrit, blood 40.8 % [facility] 34.0-46.6 hemoglobin, blood 13.3 g/dL [facility] 11.1-15.9 erythrocyte (RBC) count 4.73 X10E6/UL [facility] 3.77-5.28 leukocyte count, blood 7.6 X10E3/UL [facility] 3.4-10.8 ferritin, serum 87 ng/mL [facility] 15-150 B-12, serum 596 pg/mL [facility] 319-538 0652/11 /21 pro brain natriuretic peptide 371 pg/mL [facility] 0-287 High iron saturation percent, serum 27 % [facility] 15-55 iron, serum 79 ug/dL [facility] 27-139 iron binding capacity, unsaturated 215 ug/dL [facility] 932-694 9236/11 /21 iron binding capacity, total 294 ug/dL [facility] 872-655 2726/11 /21 free thyroxine index 1.8 [facility] 1.2-4.9 triiodothyronine resin uptake 24 % [facility] 24-39 thyroxine, serum, total 7.3 ug/dL [facility] 4.5-12.0 thyroid stimulating hormone, serum 4.020 u[IU]/mL [facility] 0.450-4.500 HISTORY OF MEDICATION USE Medication Status Instructions Dates Provider Indications Com ments omeprazole 20 mg capsule,delayed release(DR/EC) active Jose Luis Del Valle MD prednisone 10 mg tablet active Jose Luis Del Valle MD famotidine 20 mg tablet completed - Jose Luis Del Valle MD Synthroid 50 mcg tablet active TAKE 1 TABLET BY MOUTH EVERY DAY Mirna Nalluri LANDING MAN clopidogrel 75 mg tablet completed TAKE 1 TABLET BY MOUTH ONCE A DAY INSTEAD OF XARLETO - Mirna Nalluri LANDING MAN Zetia 10 mg tablet completed Take 1 tablet by mouth once a day - Mirna Erasomluri LANDING MAN clopidogrel 75 mg tablet completed - Lukas Hilliard duloxetine 20 mg capsule,delayed release(DR/EC) completed - Jose Luis Del Valle MD Zyrtec 10 mg tablet active Jose Luis Del Valle MD cholecalciferol (vitamin D3) 1,250 mcg (50,000 unit) capsule completed TAKE 1 CAPSULE BY MOUTH WEEKLY - Mirna Zimmermanlunikita LANDING MAN duloxetine 20 mg capsule,delayed release(DR/EC) completed - Jose Luis Del Valle MD levofloxacin 500 mg tablet completed Take 1 tablet by mouth once a day as directed for 10 days - Jose Luis Del Valle MD Zetia 10 mg tablet completed TAKE ONE TABL ET BY MOUTH ONCE DAILY - Jose Luis Del Valle MD Jardiance 10 mg tablet completed TAKE 1 TABLET BY MOUTH EVERY DAY - Jose Luis Del Valle MD Vitamin D3 25 mcg (1,000 unit) tablet completed 3 once a day - Jose Luis Del Valle MD olmesartan 5 mg tablet completed 1 tablet by mouth once a day - Jose Luis Del Valle MD olmesartan 20 mg tablet completed once a day - Jose Luis Del Valle MD Plavix 75 mg tablet completed Take 1 tablet by mouth once a day - Jose Luis Del Valle MD Spiriva Respimat 2.5 mcg/actuation mist completed Take 2 puff once a day - Nuris Hayes #4, 30 days supply, Prescribed by CATIE EMERSON, Filled 12/30/2020 montelukast 10 mg tablet completed Take 1 tablet by mouth every night - Jose Luis Del Valle MD #90, 90 days supply, Prescribed by GERBER LINARES, Filled 02/23/2021 CALCIUM + D3 TABLET completed Take 1 tablet by mouth once a day - Nuris Hayes Xarelto 2.5 mg tablet completed 1 tablet by mouth twice a day - Jose Luis Del Valle MD Pepcid 20 mg tablet completed Take 1 tablet by mouth once a day as needed - Jose Luis Del Valle MD DIUREX TABLET completed 1 tab 1x daily - Janna Taylor VIT D-2 CAP(ERGOCAL)1.25MG 50,000U completed TAKE 1 CAPSULE A WEEK - Nuris Hayes atorvastatin 40 mg tablet completed Take 1 tablet by mouth once a day - Jose Luis Del Valle MD aspirin 81 mg tablet,delayed release (/EC) active Take 1 tablet once a day Lukas Hillirad irbesartan 150 mg tablet completed Take 1 tablet once a day - Nataly Li NP Zyrtec 10 mg capsule completed daou7 - Jose Luis Del Valle MD BUPROPION HCL 100 MG ORAL TABLET completed 1 tab by mouth daily, if not effective after 1 week may increase to 1 tab twice daily - Brittany Hernandez RN NALTREXONE HCL 50 MG ORAL TABLET completed 1/2 tab by mouth daily, if not effective after 1 week may increase to 1/2 tab twice daily - Brittany Hernandez RN TOPAMAX 50 MG ORAL TABLET completed ONE A DAY - Janna Taylor ADIPEX-P 37.5 MG ORAL CAPSULE completed DAILY - Janna Taylor FERROUS SULFATE 325 (65 FE) MG ORAL TABLET completed ONE PER DAY - Kristen Block VITAMIN D3 42925 UNIT ORAL TABLET completed TAKE ONE TAB BY MOUTH WEEKLY - Janna Taylor DIPHENHYDRAMINE HCL 25 MG ORAL TABLET completed TAKE 2 TABLETS MORNING OF PROCEDURE - Janna Taylor PREDNISONE 50 MG ORAL TABLET completed One tab by mouth at 5pm and at 9pm the day before procedure and one tab morning of procedure - Janna Taylor FAMOTIDINE 20 MG ORAL TABLET completed TAKE ONE TABLET AT BEDTIME DAY BEFORE AND THEN ONE TABLET MORNING OF PROCEDURE - Chastity Brandon IVP ALLERGY PROTOCOL VITAMIN D3 21391 UNIT ORAL TABLET completed TAKE ONE TAB BY MOUTH WEEKLY - Janna Taylor ASPIRIN 81 MG ORAL TABLET completed ONE TAB. DAILY - Consuelo Hanna ZOCOR 40 MG ORAL TABLET completed ONE TAB. AT BEDTIME - Consuelo Hanna MUCINEX DM TABLET EXTENDED RELEASE 12 HOUR completed as needed - Consuelo Hanna VIVELLE-DOT 0.075 MG/24HR TRANSDERMAL PATCH TWICE WEEKLY completed once per day - Consuelo Hanna SOCIAL HISTORY Date Observation Value Provider social history E&M Marital Statu s: L giancarlo with family/friends E thnicity: Smoking History: P atdarell has never smoked. Jose Luis Del Valle MD social history reviewed E&M tessa cervantes - no changes required Jose Luis Del Valle MD smoking status Never smoker Mariia Paul number of grandchildren Jose Luis Mosqueda NP physical exercise, f requency, days per week yes Mary Haile caffeine use, averag e drinks per day 1+ Mary Haile smoking status Former smoker Mary Haile social history reviewed E&M tessa cervantes - no changes required Jose Luis Del Valle MD number of grandchildren Collin Steward NP physical exercise, f requency, days per week yes Lizz Hayesalem caffeine use, averag e drinks per day 1+ Lizz Eucedafamilia smoking status Former smoker Lizz Euceda familia social history E&M Marital Statu s: L giancarlo with family/friends E thnicity: S moking History: P abbi is a former smoker. Jose Luis Del Valle MD social history reviewed E&M revi ewed - no changes required Jose Luis Del Valle MD quit smoking, stage quit Jose Luis cortés MD number of grandchildren Jose Luis Li NP social history reviewed E&M revi ewed - no changes required Nataly Li NP social history E&M Marital Statu s: L giancarlo with family/friends E thnicity: Smoking History: P abbi is a former smoker. Jose Luis Del Valle MD social history reviewed E&M revi ewed - no changes required Jose Luis Del Valle MD physical exercise, f requency, days per week yes Nuris Hayes caffeine use, averag e drinks per day 1+ Nuris Leyvaby smoking status Former smoker Nuris Freddy physical exercise, f requency, days per week yes Chastity Brandon alcohol use, average drinks per day social basis only Chastity Brandon caffeine use, averag e drinks per day 1+ Chastity Brandon smoking status Former smoker Chastpatrick Hog ue social history E&M Marital Statu s: L giancarlo with family/friends E thnicity: Smoking History: P abbi is a former smoker. Manuelito Howell MD social history reviewed E&M revi ewed - no changes required Manuelito Howell MD physical exercise, f requency, days per week yes Kristen Ferreira alcohol use, average drinks per day social basis only Kristen Block caffeine use, averag e drinks per day 1+ Manuelito Howell MD smoking status Former smoker Kristen Nitza ca quit smoking, stage quit Jose Luis cortés MD social history E&M Marital Statu s: L giancarlo with family/friends E thnicity: Smoking History: P atdarell is a former smoker. Jose Luis Del Valle MD social history reviewed E&M revi ewed - no changes required Jose Luis Del Valle MD physical exercise, f requency, days per week yes Nuris Freddy alcohol use, average drinks per day social basis only Nuris Freddy caffeine use, averag e drinks per day yes Nuris [place] smoking status Former smoker Nuris [place] physical exercise, f requency, days per week yes Chastity Brandon alcohol use, average drinks per day social basis only Chastity Brandon caffeine use, averag e drinks per day yes Chastity Brandon smoking status Former smoker Chastity Hog ue social history E&M Marital Statu s: L giancarlo with family/friends E thnicity: Smoking History: P abbi is a former smoker. Jose Luis Del Valle MD social history reviewed E&M revi ewed - no changes required Jose Luis Del Valle MD physical exercise, f requency, days per week yes Chastity Brandon alcohol use, average drinks per day social basis only Chastity Brandon caffeine use, averag e drinks per day yes Chastity Brandon smoking status Former smoker Chastity Hog ue smoking status Former smoker Jose Luis garcia MD quit smoking, stage quit Jose Luis cortés MD social history E&M Marital Statu s: L giancarlo with family/friends E thnicity: Jose Luis Del Valle MD social history reviewed E&M reviewed Jose Luis Del Valle MD physical exercise, f requency, days per week yes LinkLog caffeine use, averag e drinks per day yes LinkLog alcohol use, average drinks per day social basis only LinkLogic number of years as a smoker 10 years or m ore LinkLog smoking status Quit LinkLog FUNCTIONAL STATUS Date Observation Value Provider HRA, CV Assess/Plan, Angina (inactive) Management Plan continue current therapy Jose Luis Del Valle MD HRA, CV Assess/Plan, Angina (inactive) Management Plan continue current therapy Jose Luis Del Valle MD HRA, CV Assess/Plan, Angina (inactive) Management Plan continue current therapy Jose Luis Del Valle MD HRA, CV Assess/Plan, Angina (inactive) Management Plan continue current therapy Mariia Steward NP HRA, CV Assess/Plan, Angina (inactive) Management Plan continue current therapy Jose Luis Del Valle MD HRA, CV Assess/Plan, Angina (inactive) Management Plan continue current therapy Nataly Li NP HRA, CV Assess/Plan, Angina (inactive) Management Plan continue current therapy Jose Luis Del Valle MD HRA, CV Assess/Plan, Angina (inactive) Management Plan continue current therapy Manuelito Howell MD HRA, CV Assess/Plan, Angina (inactive) Management Plan continue current therapy Jose Luis Del Valle MD HRA, CV Assess/Plan, Angina (inactive) Management Plan continue current therapy Jose Luis Del Valle MD HRA, CV Assess/Plan, Angina (inactive) Management Plan continue current therapy Jose Luis Del Valle MD MENTAL STATUS Date Observation Value Provider assessment of judgme nt and insight E&M Alert and oriented to time, place and person. Mood and affect are normal. Jose Luis Del Valle MD FAMILY HISTORY Family Member Condition Mother Family History of Co ronary Artery Disease: Mother Family History of Hy pertension: INSURANCE PROVIDERS Payer name Policy type / Coverage type [place] [employer] MEDIC[place] PART B Medicare [id number] [facility] CodeRyte [id number] ADVANCE DIRECTIVES Name Date LIVING WILL ON FILE TREATMENT PLAN Date Name Performer [id number],S,n eg rnal us n eg egfr ad uacr n eg a1c, neg vd for clot, neg pft N O PE BY CT, WITH MILDLY HIGH DD, NEG B12, NEG BRAIN CT, NEG ANIO OF LEGS 98 Jose Luis Del Valle MD [id number],BJose Luis MD [id number],S, m ild pr and tr Jose Luis Del Valle MD [id number],S, Jose Luis Del Valle MD [id number],B, H er updated medication list for this problem includes: Aspirin 81 Mg Tablet,delayed Release (dr/ec) (Aspirin) ..... Take 1 tablet once a day Jose Luis Del Valle MD [id number],B, n ormalixed, up to date on colon S /P iron infusions. Jose Luis Del Valle MD [id number],S, n eg us and hep panoel Jose Luis Del Valle MD [id number],S, e f 65, levdep 20 pro 99 Jose Luis Del Valle MD [id number],BJose Luis MD [id number],S,i ma open for complte in 99, open by ct inm 17, neg nuc 17 19 22 Jose Luis Del Valle MD [id number],S, Jose Luis garcia MD [id number],S, n eg egfr ad uacr n eg a1c, neg vd for clot, neg pft N O PE BY CT, WITH MILDLY HIGH DD, NEG B12, NEG BRAIN CT, NEG ANIO OF LEGS 98 Jose Luis Del Valle MD [id number],S, Jose Luis garcia MD [id number],C,mild pr and t r Jose Luis Del Valle MD [id number],C,ef 65, levdep 20 pro 99 Jose Luis Dle Valle MD [id number],C, Mirna Zimmermanluri NBA [id number],C,s table with out angina T he following medications were removed from the medication list: Clopidogrel 75 Mg Tablet (Clopidogrel) ..... Take 1 tablet by mouth once a day instead of xarleto Her updated medication list for this problem includes: Aspirin 81 Mg Tablet,delayed Release (dr/ec) (Aspirin) ..... Take 1 tablet once a day Mirna Nalluri LANDING MAN [id number],C, w ears bipap on regular basis Mirna Nalluri LANDING MAN [id number],C, l vedp 20 99 The following medications were removed from the medication list: Clopidogrel 75 Mg Tablet (Clopidogrel) ..... Take 1 tablet by mouth once a day instead of xarleto Her updated medication list for this problem includes: Aspirin 81 Mg Tablet,delayed Release (dr/ec) (Aspirin) ..... Take 1 tablet once a day Mirna Nalluri LANDING MAN [id number],C,stopped takin g vtamin D per primay Mirna Nalluri LANDING MAN [id number],C, Mirna Nalluri LANDING MAN [id number],C, B P today: 145/82 P rior BP: 129/79 (08/29/2022) Controlled at home from RPM readings Her updated medication list for this problem includes: Aspirin 81 Mg Tablet,delayed Release (dr/ec) (Aspirin) ..... Take 1 tablet once a day Mirna Nalluri LANDING MAN [id number],C, H er updated medication list for this problem includes: Synthroid 50 Mcg Tablet (Levothyroxine) ..... Take 1 tablet by mouth every day Orders: L ipoprotein (a) (003435) L IPID PANEL (7600) C RP, high sensitivity (05040) B ASIC METABOLIC PANEL W/EGFR (16771) 9 9214 MOD 30-39min (CPT-78213) 9 9214 MOD 30-39min (CPT-02982) C omplete Echo (CPT-86401) C omplete Echo (CPT-65557) P ROBNP, N TERMINAL (54322) Mirna Zimmermanluri LANDING MAN [id number],C,S topped taking zetia since its making her sleepy all the time and causing skin sores Mirna Zimmermanluri LANDING MAN [id number],B, Jose Luis garcia MD [id number],S, Jose Luis garcia MD [id number],S,n eg egfr ad uacr n eg a1c, neg vd for clot, neg pft N O PE BY CT, WITH MILDLY HIGH DD, NEG B12, NEG BRAIN CT, NEG ANIO OF LEGS 98 Jose Luis Del Valle MD [id number],C,neg us and he p panoel Jose Luis Del Valle MD [id number],S, l vedp 20 99 Jose Luis Del Valle MD [id number],S, Jose Luis garcia MD [id number],S, Jose Luis garcia MD [id number],B,w ants off statin , due to loss or hair Jose Luis Del Valle MD [id number],C,neg us and he p panoel Jose Luis Del Valle MD [id number],S,n eg egfr ad uacr n eg a1c, neg vd for clot, neg pft N O PE BY CT, WITH MILDLY HIGH DD, NEG B12, NEG BRAIN CT, NEG ANIO OF LEGS 98 Jose Luis Del Valle MD [id number],S, Jose Luis garcia MD [id number],B, Jose Luis garcia MD [id number],B, Jose Luis garcia [id number],B, Jose Luis garcia [id number],S, Jose Luis garcia [id number],B, n ormalixed, up to date on colon S /P iron infusions. Jose Luis Del Valle MD [id number],B, Jose Luis Andre garcia MD [id number],S, Jose Luis garcia [id number],S, i ma open for compte in 99, open by ct oin 17, neg nuc 17 and 19 and 22 Jose Luis Del Valle MD [id number],C,to have sleep studyu Jose Luis Del Valle MD [id number],S, n eg a1c, neg vd for clot, neg pft N O PE BY CT, WITH MILDLY HIGH DD, NEG B12, NEG BRAIN CT, NEG ANIO OF LEGS 98 Jose Luis Del Valle MD [id number],S, Jose Luis Andre garcia MD [id number],S, l vedp 20 99 Jose Luis Eligio HERNANDEZ [id number],S, Jose Luis Andre garcia MD [id number],N,levaquin Jacinto Steward NP [id number],N,w ith red areas noted. restart Plavix. Mariia Steward NP [id number],S,will check on e week monitor Mariia Steward NP [id number],S, Jose Luis garcia MD [id number],S, i ma open for compte in 99, open by ct oin 17, neg nuc 17 and 19 Jose Luis Del Valle MD [id number],S,negt hotler H winsome Del Valle MD [id number],S, n eg a1c, neg vd for clot, neg pft N O PE BY CT, WITH MILDLY HIGH DD, NEG B12, NEG BRAIN CT, NEG ANIO OF LEGS 98 Jose Luis Del Valle MD [id number],SJose Luis MD [id number],C, n ormalixed, up to date on colon S /P iron infusions. Jose Luis Del Valle MD [id number],BJsoe Luis MD [id number],S, N EG TELE, BETTER WITH OUT BETA Jose Luis Del Valle MD [id number],SJose Luis MD [id number],B,C HOL: 161 (02/05/2019) HDL: 41 (02/05/2019) H er updated medication list for this problem includes: Atorvastatin 40 Mg Tablet (Atorvastatin) ..... Take 1 tablet by mouth once a day Jose Luis Del Valle MD [id number],SJose Luis MD [id number],SJose Luis MD [id number],S, l vedp 20 99 w ill start jardaincalina Del Valle MD [id number],C, i ma open for compte in 99, open by ct oin 17, neg nuc 17 and 19 continue ASA, xarelto, statin, ARB Jose Luis Del Valle MD Cardiology:neg rnal us n eg egfr ad uacr n eg a1c, neg vd for clot, neg pft N O PE BY CT, WITH MILDLY HIGH DD, NEG B12, NEG BRAIN CT, NEG ANIO OF LEGS 98 Jose Luis Del Valle MD Cardiology Jose Luis Del Valle MD Cardiology: m ild pr and tr Jose Luis Del Valle MD Cardiology oJse Luis Del Valle MD Cardiology: H er updated medication list for this problem includes: Aspirin 81 Mg Tablet,delayed Release (dr/ec) (Aspirin) ..... Take 1 tablet once a day Jose Luis Del Valle MD Cardiology: n ormalixed, up to date on colon S /P iron infusions. Jose Luis Del Valle MD Cardiology: n eg us and hep panoel Jose Luis Del Valle MD Cardiology: e f 65, levdep 20 pro 99 Jose Luis Del Valle MD Cardiology Jose Luis Del Valle MD Cardiology:ye open for complte in 99, open by ct inm 17, neg nuc 17 19 22 Jose Luis Del Valle MD Cardiology Jose Luis Del Valle MD Cardiology: n eg egfr ad uacr n eg a1c, neg vd for clot, neg pft N O PE BY CT, WITH MILDLY HIGH DD, NEG B12, NEG BRAIN CT, NEG ANIO OF LEGS 98 Jose Luis Del Valle MD Cardiology Jose Luis Del Valle MD :mild pr and tr Jose Luis Del Valle MD :ef 65, levdep 20 pro 99 Jose Luis Del Valle MD Cardiology Mirna Erasmolunikita ARANGO Cardiology:stable wi th out angina T he following medications were removed from the medication list: Clopidogrel 75 Mg Tablet (Clopidogrel) ..... Take 1 tablet by mouth once a day instead of xarleto Her updated medication list for this problem includes: Aspirin 81 Mg Tablet,delayed Release (dr/ec) (Aspirin) ..... Take 1 tablet once a day Mirna Nalluri LANDING MAN Cardiology: w ears bipap on regular basis Mirna Nalluri LANDING MAN Cardiology: l vedp 20 99 The following medications were removed from the medication list: Clopidogrel 75 Mg Tablet (Clopidogrel) ..... Take 1 tablet by mouth once a day instead of xarleto Her updated medication list for this problem includes: Aspirin 81 Mg Tablet,delayed Release (dr/ec) (Aspirin) ..... Take 1 tablet once a day Mirna Nalluri LAND[place] MAN Cardiology:stopped taking vtamin D per primay Mirna Nalluri LANDING MAN Cardiology Mirna Nalluri LANDING MAN Cardiology: B P today: 145/82 P rior BP: 129/79 (08/29/2022) Controlled at home from RPM readings Her updated medication list for this problem includes: Aspirin 81 Mg Tablet,delayed Release (dr/ec) (Aspirin) ..... Take 1 tablet once a day Mirna Nalluri LANDING MAN Cardiology: H er updated medication list for this problem includes: Synthroid 50 Mcg Tablet (Levothyroxine) ..... Take 1 tablet by mouth every day Orders: L ipoprotein (a) (833976) L IPID PANEL (7600) C RP, high sensitivity (50029) B ASIC METABOLIC PANEL W/EGFR (98719) 9 9214 MOD 30-39min (CPT-51368) 9 9214 MOD 30-39min (CPT-38287) C omplete Echo (CPT-43990) C omplete Echo (CPT-24687) P ROBNP, N TERMINAL (78134) Mirna Nalluri LANDING MAN Cardiology:Stopped t rosas avendano since its making her sleepy all the time and causing skin sores Mirna Nalluri LANDING MAN Cardiology Jose Luis Del Valle MD Cardiology Jose Luis Del Valle MD Cardiology:neg egfr ad uacr n eg a1c, neg vd for clot, neg pft N O PE BY CT, WITH MILDLY HIGH DD, NEG B12, NEG BRAIN CT, NEG ANIO OF LEGS 98 Jose Luis Del Valle MD Cardiology:neg us and hep panoel Jose Luis Del Valle MD Cardiology: l vedp 20 99 Jose Luis Del Valle MD Cardiology Jose Luis Del Valle MD Cardiology Jose Luis Del Valle MD Cardiology:wants off statin , du e to loss or hair Jose Luis Del Valle MD Cardiology:neg us and hep panoel Jose Luis Del Valle MD Cardiology:neg egfr ad uacr n eg a1c, neg vd for clot, neg pft N O PE BY CT, WITH MILDLY HIGH DD, NEG B12, NEG BRAIN CT, NEG ANIO OF LEGS 98 Jose Luis Del Valle MD Cardiology Jose Luis Del Valle MD Cardiology Jose Luis Del Valle MD Cardiology Jose Luis Del Valle MD Cardiology Jose Luis Del Valle MD Cardiology Jose Luis Del Valle MD Cardiology: n ormalixed, up to date on colon S /P iron infusions. Jose Luis Del Valle MD Cardiology Jose Luis Del Valle MD Cardiology Jose Luis Del Valle MD Cardiology: i ma open for compte in 99, open by ct oin 17, neg nuc 17 and 19 and 22 Jose Luis Del Valle MD Cardiology:to have sleep studyu Jose Luis Del Valle MD Cardiology: n eg a1c, neg vd for clot, neg pft N O PE BY CT, WITH MILDLY HIGH DD, NEG B12, NEG BRAIN CT, NEG ANIO OF LEGS 98 Jose Luis Del Valle MD Cardiology Jose Luis Del Valle MD Cardiology: l vedp 20 99 Jose Luis Del Valle MD Cardiology Jose Luis Del Valle MD Electrophysiology:heather Cotter NP Electrophysiology:wi th red areas noted. restart Plavix. Mariia Steward NP Electrophysiology:will check one week monitor Mariia Steward NP Cardiology Jose Luis Del Valle MD Cardiology: i [place] open for compte in 99, open by ct oin 17, neg nuc 17 and 19 Jose Luis Del Valle MD Cardiology:negt latisha chaidez MD Cardiology: n eg a1c, neg vd for clot, neg pft N O PE BY CT, WITH MILDLY HIGH DD, NEG B12, NEG BRAIN CT, NEG ANIO OF LEGS 98 Jose Luis Del Valle MD Cardiology Jose Luis Del Valle MD Cardiology: n ormalixed, up to date on colon S /P iron infusions. Jose Luis Del Valle MD Cardiology Jose Luis Del Valle MD Cardiology: N EG TELE, BETTER WITH OUT BETA Jose Luis Del Valle MD Cardiology Jose Luis Del Valle MD Cardiology:CHOL: 161 (02/05/2019) HDL: 41 (02/05/2019) H er updated medication list for this problem includes: Atorvastatin 40 Mg Tablet (Atorvastatin) ..... Take 1 tablet by mouth once a day Jose Luis Del Valle MD Cardiology Jose Luis Del Valle MD Cardiology Jose Luis Del Valle MD Cardiology: l vedp 20 99 w ill start jesseniadaincalina Jose Luis Del Valle MD Cardiology: i [place] open for compte in 99, open by ct oin 17, neg nuc 17 and 19 continue ASA, xarelto, statin, ARB Jose Luis Del Valle MD Cardiology: T he patient is using CPAP on a regular basis. The patient has been benefiting from therapy and should continue use. Nataly Li NP Cardiology:blood wor k with PCP H er updated medication list for this problem includes: Atorvastatin Tabs 40mg (Atorvastatin calcium) ..... Take 1 tablet daily Nataly Li NP Cardiology: N EG TELE, BETTER WITH OUT BETA Repeat holter, palpitations after any amount of ETOH use Nataly Li NP Cardiology: meoldie perry open for compte in 99, open by ct oin 17, neg nuc 17 and 19 continue ASA, xarelto, statin, ARB Nataly Li NP Cardiology: B P today: 120/70 P rior BP: 132/78 (03/23/2020) Labs Reviewed: C hol: 161 (02/05/2019) HDL: 41 (02/05/2019) Nataly Li NP Cardiology:lvedp 20 99 Nataly elaine NP Cardiology Jose Luis Del Valle MD Cardiology JoseL uis Del Valle MD Cardiology Jose Luis Del Valle MD Cardiology: N EG TELE, BETTER WITH OUT BETA Jose Luis Del Valle MD Cardiology: i ma open for compte in 99, open by ct oin 17, neg nuc 17 and 19 Jose Luis Del Valle MD Cardiology:neg a1c, neg vd for clot, neg pft N O PE BY CT, WITH MILDLY HIGH DD, NEG B12, NEG BRAIN CT, NEG ANIO OF LEGS 98 Jose Luis Del Valle MD Cardiology:The patie nt is using CPAP on a regular basis. The patient has been benefiting from therapy and should continue use. Jose Luis Del Valle MD Cardiology:pro normalized Jose Luis Del Valle MD Cardiology:normalixe d, up to date on colon S /P iron infusions. Jose Luis Del Valle MD Cardiology Jose Luis Del Valle MD Cardiology:takes her lipitor for her hypercholesterolemia. H er updated medication list for this problem includes: Lipitor 40 Mg Oral Tablet (Atorvastatin calcium) ..... One tab. daily Goldie Flanagan NP Cardiology:Wants to lose weight. She has tried to lose weight with the medication from Dr. Del Valle, She continues to drink a lot of soda, and takes in a lot of sugar. h ave discussed weight loss methods, and have encouraged her to get off the soda, and desserts. Goldie Flanagan NP Cardiology:No further problems w ith her edema. Goldie Flanagan NP Cardiology:Will check JELENA's. João Howell MD Cardiology:DVT ruled out. Will check for venous insufficiency. Encouraged leg elevation. Manuelito Howell MD Cardiology:On Lipitor. Manuelito lazo MD Cardiology Manuelito Howell MD Cardiology:On CPAP b ut needs sleep study to determine best settings. Manuelito Howell MD Cardiology:S/P iron infusions. U samuel Howell MD Cardiology:ye open for compte in 99, open by ct oin 17, neg nuc 17 Jose Luis Del Valle MD Cardiology:last nuc neg 17 Lisbet Del Valle MD Cardiology Jose Luis Del Valle MD Cardiology Jose Luis Serota Cardiology Jose Luis Serota Cardiology: N EG TELE, BETTER WITH OUT BETA Jose Luis Serota Cardiology Jose Luis Serota Cardiology Jose Luis Serota Cardiology:last nuc neg 17 Harve y Serotjose HERNANDEZ Cardiology:up to date on colon H arvmathew Del Valle MD Cardiology:did not l aury qujessica, doesw not want contrave Jose Luis Del Valle MD Cardiology:stable Goldie veras LANDING MAN Cardiology:Has been on ferrous sulfate and that has caused her to be constipated. We will check iron studies, and CBC today O rders: C BC (INCLUDES DIFF/PLT) (6399) I AMERICO AND TOTAL IRON BINDING CAPACITY (7573) Goldie Flanagan LANDING MAN Cardiology:appears compensated V albert Flanagan LANDING MAN Cardiology:DOES NOT WATN SURGERY , WILL TRY DIET PILL Jose Luis Del Valle MD Cardiology:UP TO PAULETTE E WITH COLON, NOT ANEMIC, WILL TRY IRON Jose Luis Del Valle MD Cardiology:PRO SLIGHT HIGH Harve y Eligio HERNANDEZ Cardiology:NEG TELE Jose Luis garcia MD Cardiology:NEG TELE, BETTER WITH OUT BETA Jose Luis Eligio HERNANDEZ Cardiology:NEG TELE, BETTER WITH OUT BETA Jose Luis Serotjose HERNANDEZ Cardiology:OPEN IN 9 9, WAS SEEN OPEN IN [address], NUC NEG 17 Jose Luis Del Valle MD Cardiology:NO PE BY CT, WITH MILDLY HIGH DD, NEG TSH AND B12, NEG BRAIN CT, NEG ANIO OF LEGS 98 Jose Luis Del Valle MD Cardiology Jose Luis Serotjose HERNANDEZ Cardiology:ye open in 99, neg n uc 12 Jose Luis Del Valle MD Cardiology:ON RX Jose Luis Serota Brittney Jennings Cardiology:neg ct an d neg tele in past, will try witoug beta Jose Luis Del Valle MD Cardiology:ye open in 99 Jose Luis Del Valle MD New patient : O rders: X -Ray, Chest, PA & Lateral (CPT-16901) S tress Test - Adenosine (44178) M obile Cardiac Tele (CPT-98406) H olter Monitor 24 Hr (CPT-97604) Jose Luis Del Valle MD New patient : O rders: C omplete Echo (CPT-03853) C arotid Duplex Bilateral (CPT-90755) X -Ray, Chest, PA & Lateral (CPT-91992) S tress Test - Adenosine (86448) M obile Cardiac Tele (CPT-80585) H olter Monitor 24 Hr (CPT-99297) Jose Luis Del Valle MD New patient : H er updated medication list for this problem includes: Aspirin 81 Mg Tabs (Aspirin) ..... One tab. daily Orders: X -Ray, Chest, PA & Lateral (CPT-65483) S tress Test - Adenosine (48674) M obile Cardiac Tele (CPT-06616) H olter Monitor 24 Hr (CPT-14905) Jose Luis Del Valle MD New patient : O rders: C omplete Echo (CPT-27123) C arotid Duplex Bilateral (CPT-95263) X -Ray, Chest, PA & Lateral (CPT-55159) S tress Test - Adenosine (76922) M obile Cardiac Tele (CPT-99896) H olter Monitor 24 Hr (CPT-71419) Jose Luis Del Valle MD New patient : O rders: C omplete Echo (CPT-87735) C arotid Duplex Bilateral (CPT-80120) X -Ray, Chest, PA & Lateral (CPT-21990) S tress Test - Adenosine (67457) M obile Cardiac Tele (CPT-54077) H olter Monitor 24 Hr (CPT-50754) Jose Luis Del Valle MD New patient : O rders: C omplete Echo (CPT-30755) C arotid Duplex Bilateral (CPT-89979) X -Ray, Chest, PA & Lateral (CPT-31773) S tress Test - Adenosine (37787) M obile Cardiac Tele (CPT-55181) H olter Monitor 24 Hr (CPT-21416) Joes Luis Del Valle MD New patient : H er updated medication list for this problem includes: Aspirin 81 Mg Tabs (Aspirin) ..... One tab. daily Orders: C omplete Echo (CPT-96781) C arotid Duplex Bilateral (CPT-62799) X -Ray, Chest, PA & Lateral (CPT-42096) S tress Test - Adenosine (81964) M obile Cardiac Tele (CPT-41777) H olter Monitor 24 Hr (CPT-72040) Jose Luis Del Valle MD New patient : H er updated medication list for this problem includes: Zocor 40 Mg Tabs (Simvastatin) ..... One tab. at bedtime Aspirin 81 Mg Tabs (Aspirin) ..... One tab. daily Orders: C omplete Echo (CPT-55666) C arotid Duplex Bilateral (CPT-49302) X -Ray, Chest, PA & Lateral (CPT-27178) S tress Test - Adenosine (93557) M obile Cardiac Tele (CPT-91395) H olter Monitor 24 Hr (CPT-84393) Jose Luis Del Valle MD New patient : O rders: C omplete Echo (CPT-25516) C arotid Duplex Bilateral (CPT-37313) Jose Luis Del Valle MD New patient : O rders: C omplete Echo (CPT-72596) C arotid Duplex Bilateral (CPT-96340) X -Ray, Chest, PA & Lateral (CPT-93069) S tress Test - Adenosine (25703) M obile Cardiac Tele (CPT-93111) H olter Monitor 24 Hr (CPT-40328) Jose Luis Del Valle MD Date Name Holter Monitor 24 Hr TSH, 3RD GENERATION W/REFLEX TO FT4 TSH, free T4, total T3 TSH, free T4, total T3 TSH, free T4, total T3 PROBNP, N TERMINAL Complete Echo BASIC METABOLIC PANE L W/EGFR CRP, high sensitivit y LIPID PANEL Lipoprotein (a) Complete Echo Holter Monitor 24 Hr Microalb/Creatinine Urine, Random LIPID PANEL CRP, high sensitivit y BASIC METABOLIC PANE L W/EGFR Abdominal Ultrasound Limited HEPATITIS PANEL Holter Monitor 24 Hr Monitor - Telemetry (Mobile Cardiac) Stress Regadenoson Complete Echo Holter Monitor 24 Hr Holter Monitor 24 Hr Holter Monitor 24 Hr HEMOGLOBIN A1c LIPID PANEL LIPID PANEL Venous Doppler Bilat eral LE - Reflux Arterial Duplex Bi-L jeremíaser EX Sleep Study Home THYROID PANEL WITH T SH, 3RD GENERATION Vitamin D, 25-Hydrox y Stress Regadenoson D-DIMER, QUANTITATIV E PROBNP, N TERMINAL DLCO - 12833 FRC - 94768 FVC - 09206 CXR- PA/Lat PROTHROMBIN TIME WIT H INR LIPID PANEL Mobile Cardiac Tele Complete Echo PROBNP, N TERMINAL IRON AND TOTAL IRON BINDING CAPACITY FERRITIN IRON AND TOTAL IRON BINDING CAPACITY CBC (INCLUDES DIFF/P LT) CT Angio Chest (PE P rotocol) THYROID PANEL WITH T SH, 3RD GENERATION VITAMIN B12 VITAMIN D, 25-HYDROX Y, LC/MS/MS IRON AND TOTAL IRON BINDING CAPACITY FERRITIN D-DIMER, QUANTITATIV E STR - Adenosine PROBNP, N TERMINAL Mobile Cardiac Tele Complete Echo Mobile Cardiac Tele Stress Test - Adenos ine X-Ray, Chest, PA & L ateral Carotid Duplex Bilat eral Complete Echo HISTORY OF PROCEDURES Procedure Date Procedure Name Provider Procedure Notes S tatus EKG Collin cobos MD completed EKG Jose Luis Del Valle MD complete d Holter, 24 or 48 Jose Luis Del Valle MD co mpleted EKG Jose Luis Del Valle MD complete d EKG Jose Luis Del Valle MD complete d Injectafer 750mg Jose Luis Del Valle MD co mpleted Therapeutic IV Infus ion up to 1 hour Jose Luis Del Valle MD completed Injectafer 750mg Jose Luis Del Valle MD co mpleted Therapeutic IV Infus ion up to 1 hour Jose Luis Del Valle MD completed Stress EKG Collin cobos MD completed Regadenoson, 4 units Jax Barraza MD completed Cardiolite, 2 units Jax Barraza MD completed SPECT Images Jax Barraza MD completed FVC / MVV - 27861 Jose Luis Del Valle MD c ompleted BLOOD COUNT HEMOGLOBIN Jose Luis Del Valle MD completed FRC - 02495 Jose Luis Del Valle MD complet ed SpO2 w/o 6min walk/titration Jose Luis Del Valle MD completed DLCO - 18901 Jose Luis Del Valle MD comple deb Event Monitor Jose Luis Del Valle MD compl eted EKG Jose Luis Del Valle MD complete d EKG Jose Luis Del Valle MD complete d EKG Jose Luis Del Valle MD complete d SNOMED-CT: [id number] Current Medications Documented Jose Luis Del Valle MD completed Stress EKG Jax Barraza MD completed Regadenoson, 4 units Jax Barraza MD completed Cardiolite, 2 units Jax Barraza MD completed SPECT Images Jax Barraza MD completed Mobile Cardiac Telem etry - Tech Jose Luis Del Valle MD completed Mobile Cardiac Telem etry - Prof Jose Luis Del Valle MD completed EKG Jose Luis Del Valle MD complete d SNOMED-CT: [id number] Current Medications Documented Jose Luis Del Valle MD completed
--- OUTSIDE RECORDS SUMMARY | 2025-04-24 15:59 | XMS_ITS | Clinical Summary ---
Author Organization [facility] Address [address] [place] [id number] Care Team Providers Care Pressing Department Supervisor Name Role Phone Ricki Small MD Primary Care Provider + [phone] Jose Luis Del Valle MD Unavailable [phone] Allergies Active Allergy Reactions Criticality Noted Date Comments Latex Redness Low 07/21/2023 Agniewt-Ioc-Ued Reductase Inhibitors Other (See comments) 03/20/2025 Intolerance Medications fexofenadine (GAMALIEL) 60 mg tablet Take 1 tablet (60 mg total) by mouth daily Active levothyroxine (SYNTHROID) 25 mcg tablet Take 1 tablet (25 mcg total) by mouth daily 12/31/2024 Active pregabalin (LYRICA) 150 mg capsule Take 1 capsule (150 mg total) by mouth 2 (two) times a day 02/02/2025 Active celecoxib (CeleBREX) 200 mg capsule Take 1 capsule (200 mg total) by mouth daily 03/10/2025 Active famotidine (PEPCID) 40 mg tablet Take 1 tablet (40 mg total) by mouth daily Active clopidogreL (PLAVIX) 75 mg tabletIndicatio ns: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 angina pectoris Take 1 tablet (75 mg total) by mouth daily 30 tablet 11 03/20/2025 Active Active Problems Problem Noted Date Diagnosed Date Hypothyroidism 03/20/2025 Hyperlipidemia LDL goal <70 03/20/2025 ELSIE (obstructive sleep apnea) 03/20/2025 Former smoker 03/20/2025 Morbid obesity 03/20/2025 Morbid obesity with BMI of 45.0-49.9, adult 11/2024 Coronary artery disease invo lving sleetmute coronary artery of sleetmute heart without angina pectoris 03/20/2025 Statin intolerance 03/20/2025 Chronic diastolic CHF (congestive heart failure) 03/20/2025 Special screening for malignant neoplasms, colon 06/14/2023 Smoking 08/22/2022 Encounters Date Type Department Care Team Description 04/04/2025 Results Follow-Up [facility] Cardiology [address] [facility] [address] [place] [address] Marianela Lewis MD Transthoracic Echo (TTE) Complete W Doppler/CF 04/03/2025 3:00 PM CDT Ancillary Procedure [facility] at [address] [place] [phone] 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 angina pectoris; Morbid obesity (HCC); Hyperlipidemia LDL goal <70; Hypothyroidism, unspecified type; Chronic diastolic CHF (congestive heart failure) (HCC) 03/27/2025 12:00 PM CDT Infusion [facility] Non-Oncology Infusion [address] [place] [phone] Hyperlipidemia LDL goal <70 (Primary Dx) 03/21/2025 Telephone [facility] Non-Oncology Infusion [address] [place] [address] Pretty Mariscal RN 03/20/2025 10:30 AM CDT Office Visit [facility] Cardiology at [address] [place] [address] Marianela Lewis MD 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 angina pectoris (Primary Dx); Morbid obesity with BMI of 45.0-49.9, adult (HCC); Morbid obesity (HCC); Former smoker; ELSIE (obstructive sleep apnea); Hyperlipidemia LDL goal <70; Hypothyroidism, unspecified type; Chronic diastolic CHF (congestive heart failure) (HCC); Statin intolerance 03/20/2025 Orders Only [facility] Non-Oncology Infusion [address] [place] [phone] Marianela Lewis MD Hyperlipidemia LDL goal <70 (Primary Dx); 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 angina pectoris 03/20/2025 Telephone [facility] Cardiology [address] [facility] [address], [place] [address] Marianela Lewis MD from Last 3 Months Surgical History Surgery Date Site/Laterality Comments OTHER SURGICAL HISTORY 1993 Open heart surgery x1 CHOLECYSTECTOMY 2008 gallbladder surgery OTHER SURGICAL HISTORY infection of foot, surgery OTHER SURGICAL HISTORY excision ulnar nerve left elbow HYSTERECTOMY Hysterectomy KNEE ARTHROSCOPY Left Arthroscopy knee ROTATOR CUFF REPAIR 2008 Right Rotator cuff repair AL TOTAL ABDOMINAL HYSTERECT W/WO RMVL TUBE OVARY Hysterectomy - (Added by TW Conv) HEART SURGERY 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 (Added by TW Conv) COLONOSCOPY 09/20/2017 - 10/19/2017 COLONOSCOPY 07/25/2023 Medical History Medical History Date Comments Personal history of other di seases of the circulatory system History of cardiac murmur - (Added by TW Conv) Personal history of other me dical treatment History of blood transfusion - (Added by TW Conv) Personal history of other di seases of the circulatory system History of hypertension - (A dded by TW Conv) Smoking Quit in 1992 Family History Medical History Relation Name Comments Throat cancer Brother Family history of malignant neoplasm of larynx - (Added by TW Conv) Lung cancer Mother Family history of lung cancer - (Added by TW Conv) Diabetes type II Other 1 Family hist ory of type 2 diabetes mellitus - Relation: Grandmother (Added by TW Conv) Stroke Other 2 Family history of cerebrovascular accident - Relation: Grandmother (Added by TW Conv) Anal Cancer Sister Breast cancer Sister Family history of malignant neoplasm of breast - (Added by TW Conv) Endometrial cancer Neg Hx Ovarian cancer Neg Hx Thyroid cancer Neg Hx Relation Name Status Comments Brother Mother Other 1 Other 2 Sister Social History Tobacco Use Types Packs/Day Years [...] on file Legal 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 Gender Identity Not on file Sexual Orientation Not on file Obstetrics History Para Term AB IAB SAB Ectopic Multiple Livin g Live Births 2 2 2 Date Outcome GA Total Labor Labor/2nd/3rd Weight Sex Type Anes PTL Dominique A1 A5 Name Clin Term Term Last Filed Vital Signs Vital Sign Reading Time Taken Comments Blood Pressure 117/86 03/27/2025 11:45 AM CDT Pulse 91 03/27/2025 11:45 AM CDT Temperature 36.6 C (97.9 F) 03/27/2025 11:45 AM CDT Respiratory Rate 18 03/27/2025 11:45 AM CDT Oxygen Saturation 99% 03/27/2025 11:45 AM CDT Inhaled Oxygen Concentration - - Weight 119.7 kg (264 lb) 03/20/2025 10:27 AM CDT Height 162.6 cm (5' 4) 03/20/2025 10:27 AM CDT Body Mass Index 45.32 03/20/2025 10:27 AM CDT Plan of Treatment Health Maintenance Due Date Last Done Comments Depression Screening 1955 Hepatitis C Screening 1955 Osteoporosis Screening-Bone Density Scan 1955 DTaP/Tdap/Td Vaccine (1 - Tdap) 1966 Hepatitis B Screening 1973 Pneumococcal vaccine 65+ (1 of 2 - PCV) 1974 Zoster Vaccine (1 of 2) 2005 Well Visit 65+ 2020 Breast Cancer Screening-Mammogram 11/07/2024 11/07/2023, 08/22/2022, 10/01/2019, Additional history exists Influenza Vaccine (Season Ended) 2025 09/16/20, 09/03/2018 Fall Risk Assessment 03/27/2026 03/27/2025, 07/25/20 Colon Cancer Screening-Colonoscopy 07/25/2033 07/25/2023, 09/21/2017 Colon Cancer Screening-CT Colonography Discontinued 07/25/2023, 09/21/2017 Colon Cancer Screening-DNA Stool Discontinued 07/25/20, 09/21/2017 Colon Cancer Screening-FIT Discontinued 07/25/2023, Colon Cancer Screening-Sigmoidoscopy Discontinued 07/25/2023, 09/21/2017 Procedures Procedure Name Priority Date/Time Associated Diagnosis Comments TRANSTHORACIC ECHO (TTE) COMPLETE W DOPPLER/CF Routine 04/03/2025 3:07 PM CDT 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 angina pectoris Morbid obesity (HCC) Hyperlipidemia LDL goal <70 Hypothyroidism, unspecified type Chronic diastolic CHF (congestive heart failure) (HCC) ECG 12-LEAD Routine 03/20/2025 3:20 PM CDT Chronic diastolic CHF (congestive heart failure) (HCC) POCT LIPID PANEL Routine 03/20/2025 10:1 8 AM CDT 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 angina pectoris Hyperlipidemia LDL goal <70 SCREENING MAMMOGRAM BILATERAL W HUSEYIN Schedule Routine, Read Routine (OP Routine) 11/07/2023 9:58 AM 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 Screening mammogram, encounter for COLONOSCOPY 07/25/2023 8:05 AM CDT from Last 3 Months or Most Recently Relevant to Health Maintenance Results * Transthoracic Echo (TTE) Complete W Doppler/CF (04/03/2025 3:07 PM CDT) Estimated EF 70 % CONS SCIMAGE EF Mod BP 61 % CONS SCIMAGE Anatomical Region Laterality Modality Ultrasound 04/03/2025 3:07 PM CDT Narrative 04/03/2025 4:30 PM CDT [facility] Cardiology [address], [address], [place] [address] P:[phone] P:[phone] Echocardiographic Report Patient Name: IRMA AYERS M : 1955 Study Date: 04/03/2025 3:07:28 PM Gender: F Tech: Location: [facility] Ref Provider: MARIANELA LEWIS Height(Cm): 163 BSA: 2.33 Weight(Kg): 119.7 Heart Rate: 95 BP: 117 / 86 Quality: Good Order Provider: MARIANELA LEWIS PROCEDURES: Echocardiographic Report: Transthoracic echocardiogram with complete 2D, M-Mode, and color Doppler examination. INDICATIONS: I25.10 Atherosclerotic heart disease of sleetmute coronary artery without angina pectoris, E66.01 Morbid (severe) obesity due to excess calories, E78.5 Hyperlipidemia, unspecified, E03.9 Hypothyroidism, unspecified, and I50.32 Chronic diastolic (congestive) heart failure. MEASUREMENTS: 2D/MM Value Range Doppler Value Range EF Mod BP 61 % [ 54 - 74 ] AV Mean PG 4 mmHg EF Teich MM 65 % [ 54 - 74 ] AV Peak Nehemias 1.21 m/s [ 1.00 - 1.70 ] Estimated EF 70 % AV Peak PG 6 mmHg LVIDd 2D 4.61 cm [ 3.80 - 5.20 ] AV VTI 23.81 cm LVIDd MM 4.75 cm [ 3.80 - 5.20 ] LVOT Peak Nehemias 0.82 m/s [ 0.70 - 1.10 ] LVIDs 2D 3.14 cm [ 2.20 - 3.50 ] LVOT VTI 14.68 cm LVIDs MM 3.06 cm [ 2.20 - 3.50 ] MV E Peak Nehemias 0.71 m/s [ 0.60 - 1.30 ] LVPWd 2D 0.81 cm [ 0.60 - 0.90 ] MV A Peak Nehemias 0.99 m/s [ 1.00 - 1.20 ] LVPWd MM 0.89 cm [ 0.60 - 0.90 ] MV Decel Time 122 msec [ 104 - 258 ] IVSd 2D 1.08 cm [ 0.60 - 0.90 ] PV Peak Nehemias 1.15 m/s [ 0.40 - 0.80 ] IVSd MM 1.23 cm [ 0.60 - 0.90 ] Lateral E` 0.08 m/s [ 0.10 - 0.15 ] LA Dimension MM 4.60 cm [ 2.70 - 3.80 ] E/E` 9 AoR Diam MM 3.34 cm [ 2.70 - 3.70 ] LA Volume Index 28 cc/m2 [ 16 - 34 ] ACS MM 2.24 cm 2D/MM Value Range Doppler Value Range - FINDINGS: Interpretation Site: Exam was interpreted at [facility]. Left Ventricle: Normal left ventricular systolic function. No focal wall motion abnormalities. Normal left ventricular size. Asymmetric septal hypertrophy. Impaired diastolic relaxation Grade I. Ejection Fraction is visually estimated to be 70 %. Right Ventricle: Normal right ventricular size. Normal right ventricular systolic function. Left Atrium: There is mild enlargement of left atrium. Right Atrium: The right atrium is normal in size. Atrial Septum: Normal atrial septum. Mitral Valve: Normal appearance of the mitral valve. Trivial regurgitation of the mitral valve. There is no hemodynamically significant mitral stenosis by Doppler. Aortic Valve: No evidence of hemodynamically significant aortic stenosis by Doppler. Aortic cusps appear mildly sclerotic. Trileaflet aortic valve. Trace aortic valve regurgitation. Tricuspid Valve: Normal appearance of the tricuspid valve. Right ventricular systolic pressure could not be estimated due to inadequate visualization of the tricuspid regurgitation jet. Trivial regurgitation in the tricuspid valve. Pulmonic Valve: Normal appearance of the pulmonic valve. No pulmonic stenosis. Mild pulmonic regurgitation. Pericardium: Normal pericardium with no significant pericardial effusion. Aorta: Normal aortic root. IVC: Normal size and normal respiratory collapse consistent with normal right atrial pressure (<5 mmHg). CONCLUSIONS: Normal left ventricular systolic function. No focal wall motion abnormalities. Normal left ventricular size. Asymmetric septal hypertrophy. Impaired diastolic relaxation Grade I. Ejection Fraction is visually estimated to be 70 %. There is mild enlargement of left atrium. Mild pulmonic regurgitation. Normal sinus rhythm. Electronically Signed By: Marianela Lewis MD 04/03/2025 4:28:59 PM CDT Procedure Note Marianela Lewis MD - 04/03/2025 [facility] Cardiology [address], [address], [place] [address] P:[phone] P:[phone] Echocardiographic Report Patient Name: IRMA AYERS M : 1955 Study Date: 04/03/2025 3:07:28 PM Gender: F Tech: Location: [facility] Ref Provider: MARIANELA LEWIS Height(Cm): 163 BSA: 2.33 Weight(Kg): 119.7 Heart Rate: 95 BP: 117 / 86 Quality: Good Order Provider: MARIANELA LEWIS PROCEDURES: Echocardiographic Report: Transthoracic echocardiogram with complete 2D, M-Mode, and color Dopplerexamination. INDICATIONS: I25.10 Atherosclerotic heart disease of sleetmute coronary artery withoutangina pectoris, E66.01 Morbid (severe) obesity due to excess calories, E78.5Hyperlipidemia, unspecified, E03.9 Hypothyroidism, unspecified, and I50.32 Chronic diastolic(congestive) heart failure. MEASUREMENTS: 2D/MM Value Range Doppler ValueRange EF Mod BP 61 % [ 54 - 74 ] AV Mean PG 4mmHg EF Teich MM 65 % [ 54 - 74 ] AV Peak Nehemias 1.21m/s [ 1.00 - 1.70 ] Estimated EF 70 % AV Peak PG 6mmHg LVIDd 2D 4.61 cm [ 3.80 - 5.20 ] AV VTI 23.81cm LVIDd MM 4.75 cm [ 3.80 - 5.20 ] LVOT Peak Nehemias 0.82m/s [ 0.70 - 1.10 ] LVIDs 2D 3.14 cm [ 2.20 - 3.50 ] LVOT VTI 14.68cm LVIDs MM 3.06 cm [ 2.20 - 3.50 ] MV E Peak Nehemias 0.71m/s [ 0.60 - 1.30 ] LVPWd 2D 0.81 cm [ 0.60 - 0.90 ] MV A Peak Nehemias 0.99m/s [ 1.00 - 1.20 ] LVPWd MM 0.89 cm [ 0.60 - 0.90 ] MV Decel Time 122msec [ 104 - 258 ] IVSd 2D 1.08 cm [ 0.60 - 0.90 ] PV Peak Nehemias 1.15m/s [ 0.40 - 0.80 ] IVSd MM 1.23 cm [ 0.60 - 0.90 ] Lateral E` 0.08m/s [ 0.10 - 0.15 ] LA Dimension MM 4.60 cm [ 2.70 - 3.80 ] E/E` 9 AoR Diam MM 3.34 cm [ 2.70 - 3.70 ] LA Volume Index 28 cc/m2 [ 16 - 34 ] ACS MM 2.24cm 2D/MM Value Range Doppler ValueRange - FINDINGS: Interpretation Site: Exam was interpreted at [facility]. Left Ventricle: Normal left ventricular systolic function. No focal wall motionabnormalities. Normal left ventricular size. Asymmetric septal hypertrophy. Impaired diastolicrelaxation Grade I. Ejection Fraction is visually estimated to be 70 %. Right Ventricle: Normal right ventricular size. Normal right ventricular systolicfunction. Left Atrium: There is mild enlargement of left atrium. Right Atrium: The right atrium is normal in size. Atrial Septum: Normal atrial septum. Mitral Valve: Normal appearance of the mitral valve. Trivial regurgitation of the mitralvalve. There is no hemodynamically significant mitral stenosis by Doppler. Aortic Valve: No evidence of hemodynamically significant aortic stenosis by Doppler.Aortic cusps appear mildly sclerotic. Trileaflet aortic valve. Trace aortic valveregurgitation. Tricuspid Valve: Normal appearance of the tricuspid valve. Right ventricular systolicpressure could not be estimated due to inadequate visualization of the tricuspidregurgitation jet. Trivial regurgitation in the tricuspid valve. Pulmonic Valve: Normal appearance of the pulmonic valve. No pulmonic stenosis. Mildpulmonic regurgitation. Pericardium: Normal pericardium with no significant pericardial effusion. Aorta: Normal aortic root. IVC: Normal size and normal respiratory collapse consistent with normal rightatrial pressure (<5 mmHg). CONCLUSIONS: Normal left ventricular systolic function. No focal wall motionabnormalities. Normal left ventricular size. Asymmetric septal hypertrophy. Impaired diastolicrelaxation Grade I. Ejection Fraction is visually estimated to be 70 %. There is mild enlargement of left atrium. Mild pulmonic regurgitation. Normal sinus rhythm. Electronically Signed By: Marianela Lewis MD 04/03/2025 4:28:59 PM CDT Marianela Lewis MD CV ECHO PROCEDURES Final Result * ECG 12 lead (03/20/2025 3:20 PM CDT) Marianela Lewis MD ECG ORDERABLES Final Res ult * (ABNORMAL) POCT lipid panel (03/20/2025 10:18 AM CDT) Cholesterol, POC 169 <200 MG/DL HDL, POC 22(A) >=40 mg/dL Triglycerides, POC 129 <=149 mg/dL LDL Cholesterol POC 121 <=129 mg/dL Chol/HDL Ratio, POC 7.7 NONE Non-HDL Cholesterol, POC 147 NONE mg/dL Cholesterol Total, POC 169 30 - 199 mg/dL Capillary blood 03/20/2025 1 0:18 AM CDT Marianela Lewis MD POINT OF CARE TEST ORDERA BLES Final Result * Screening Mammogram Bilateral W Huseyin (11/07/2023 9:58 AM 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) Anatomical Region Laterality Modality Breast Bilateral Mammography 11/07/2023 10:4 8 AM 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 Impressions 11/07/2023 10:48 AM 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 No evidence of malignancy in either breast. FINAL ASSESSMENT: BI-RADS Category 1: Negative. RECOMMENDATION: Recommend return for annual screening mammogram in 12 months. Electronically signed by: Chey John M.D. Narrative 11/07/2023 10:48 AM 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 EXAMINATION: BILATERAL SCREENING MAMMOGRAM COMPARISON: Multiple prior studies, most recently 08/22/2022 and dating back to 08/16/2018. TECHNIQUE: Full-field 2D and digital breast tomosynthesis (DBT) images were obtained. CAD was utilized. BREAST PARENCHYMAL COMPOSITION: There are scattered areas of fibroglandular density. FINDINGS: There is no suspicious mass, calcification, or distortion in either breast. There has been no significant interval change from the prior study. us Self Screening Mammogram IMG MAMMO PROCEDURES Fi nal Result * COLONOSCOPY (07/25/2023 8:05 AM CDT) Anatomical Region Laterality Modality Other Narrative Procedure Note Stan Short MD - 07/25/2023 8:[address] [facility] Patient Name: Irma Ayers Procedure Date: 07/25/2023 8:05 AM Date of : 1955 Admit Type: Outpatient Age: 67 Gender: Female Attending MD: Stan Short M.D. Room: [facility] ENDOSCOPY ROOM 2 Note Status: Finalized Patient Profile: Refer to note in patient chart for documentation of history and physical. Procedure: Colonoscopy Indications: Screening for colorectal malignant neoplasm, Last colonoscopy: September 2017 Referring MD: Aleshia Brown NP Providers: Stan Short M.D. Impression: - Hemorrhoids found on perianal exam. - Diverticulosis in the sigmoid colon. - The examination was otherwise normal. - No specimens collected. Recommendation: - Discharge patient to home. - Resume previous diet. - Continue present medications. - Repeat colonoscopy in 10 years for screening purposes. - Return to primary care physician as previously scheduled. Medicines: Propofol per Anesthesia Complications: No immediate complications. Estimated Blood Loss: Estimated blood loss: none. Procedure: Pre-Anesthesia Assessment: - This assessment was completed [Time ofAssessment] prior to the administration of sedation. The benefits, risks and alternatives of theprocedure and sedation were discussed and informed consentwas obtained. All questions were answered. Please referto the signed informed consent document in the medical record. The bowel preparation used was Miralax and bisacodyl tablets via split dose instruction. The scope was passed under direct vision. TheColonoscope [id number] was introduced through the anus and advanced to the the cecum, identified by appendiceal orifice and ileocecal valve. The colonoscopy was performed without difficulty. The patient tolerated the procedure well. The qualityof the bowel preparation was adequate to identifypolyps 6 mm and larger in size. The ileocecal valve, appendiceal orifice, and rectum werephotographed. Findings: Hemorrhoids were found on perianal exam. A few small-mouthed diverticula were found in the sigmoid colon. The exam was otherwise without abnormality. Electronically signed by Stan Short M.D. Stan Short M.D. 07/25/2023 9:35:40 AM Number of Addenda: 0 Note Initiated On: 07/25/2023 8:05 AM Procedure Code(s): --- Professional --- G0121, Colorectal cancer screening; colonoscopy on individual not meeting criteria for high risk --- Technical --- G0121, Colorectal cancer screening; colonoscopy on individual not meeting criteria for high risk Diagnosis Code(s): --- Professional --- K57.30, Diverticulosis of large intestine without perforation orabscess without bleeding K64.9, Unspecified hemorrhoids Z12.11, Encounter for screening for malignant neoplasm of colon --- Technical --- K57.30, Diverticulosis of large intestine without perforation orabscess without bleeding K64.9, Unspecified hemorrhoids Z12.11, Encounter for screening for malignant neoplasm of colon CPT copyright 2020 [employer]. All rights reserved. The codes documented in this report are preliminary and upon director sales and marketing reviewmay be revised to meet current compliance requirements. Recognized by the [employer] for promoting quality in endoscopy Stan Short MD ENDOSCOPY PROCEDURES Final Re sult from Last 3 Months or Most Recently Relevant to Health Maintenance Insurance MEDICARE [facility] MEDICARE [facility] MEDICARE [facility] Advance Directives For more information, please contact: [phone] * Full Code (Latest Code Status on File) Date Activated Date Inactivated Comments 07/25/2023 8:08 AM 07/25/2023 2:29 PM * Full Code Date Activated Date Inactivated Comments 07/25/2023 8:08 AM 07/25/2023 8:08 AM Care Teams Pressing Department Supervisor Relationship Specialty Start Date End Date Ricki Small MD [address] [place] [address] PCP - General Family Medicine 09/18/24 [place] [id number] [address] Consulting Physician Cardiology 12/04/24
--- OUTSIDE RECORDS SUMMARY | 2025-04-24 16:00 | XMS_ITS | Referral Summary ---
Author Organization [facility] Address [id number] [place] [id number] Care Team Providers Care Fur Feeder Name Role Phone Ricki Small MD Primary Care Provider Jose Luis Del Valle MD Unavailable [phone] Encounters Date Type Department Care Team Description 04/04/2025 Results Follow-Up [facility] Card[facility] [address] [facility] [address] [place] [address] Marianela Lewis MD Transthoracic Echo (TTE) Complete W Doppler/CF 04/03/2025 3:00 PM CDT Ancillary Procedure [facility] Cardiology at [address] [place] [address] 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; Morbid obesity (HCC); Hyperlipidemia LDL goal <70; Hypothyroidism, unspecified type; Chronic diastolic CHF (congestive heart failure) (HCC) 03/27/2025 12:00 PM CDT Infusion [facility] Non-Oncology Infusion [address] [place] [address] Hyperlipidemia LDL goal <70 (Primary Dx) 03/21/2025 Telephone [facility] Non-Oncology Infusion [address] [place] [address] Pretty Mariscal RN 03/20/2025 Orders Only [facility] Non-Oncology Infusion [address] [place] [address] Marianela Lewis MD Hyperlipidemia LDL goal <70 (Primary Dx); 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 03/20/2025 Telephone [facility] Medical [facility] Cardiology [address] [facility] [address], [place] [address] Marianela Lewis MD 03/20/2025 10:30 AM CDT Office Visit [facility] Cardiology at [address] [place] [address] Marianela Lewis MD 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 (Primary Dx); Morbid obesity with BMI of 45.0-49.9, adult (HCC); Morbid obesity (HCC); Former smoker; ELSIE (obstructive sleep apnea); Hyperlipidemia LDL goal <70; Hypothyroidism, unspecified type; Chronic diastolic CHF (congestive heart failure) ([facility]); Statin intolerance from Last 3 Months Allergies Active Allergy Reactions Criticality Noted Date Comments Latex Redness Low 07/21/2023 Ntoaicb-Aph-Ufw Reductase Inhibitors Other (See comments) 03/20/2025 Intolerance [...] 75 mg tabletIndicatio ns: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 Take 1 tablet (75 mg total) by mouth daily 30 tablet 11 03/20/2025 Active Active Problems Problem Noted Date Diagnosed Date Hypothyroidism 03/20/2025 Hyperlipidemia LDL goal <70 03/20/2025 ELSIE (obstructive sleep apnea) 03/20/2025 Former smoker 03/20/2025 Morbid obesity 03/20/2025 Morbid obesity with BMI of 45.0-49.9, adult 0511/2024 Coronary artery disease invo lving aniak coronary artery of aniak heart without angina pectoris 03/20/2025 Statin intolerance 03/20/2025 Chronic diastolic CHF (congestive heart failure) 03/20/2025 Special screening for malignant neoplasms, colon 06/14/2023 Smoking 08/22/2022 Social History Tobacco Use Types Packs/Day Years [...] on file Legal Sex Female 12:14 AM [employer] Gender Identity Not on file Sexual Orientation Not on file Last Filed Vital Signs Vital Sign Reading [...] 03/20/2025 10:27 AM CDT Plan of Treatment Not on file Procedures Procedure Name Priority Date/Time Associated Diagnosis Comments TRANSTHORACIC ECHO (TTE) COMPLETE W DOPPLER/CF Routine 04/03/2025 3:07 PM CDT 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 Morbid obesity (HCC) Hyperlipidemia LDL goal <70 Hypothyroidism, unspecified type Chronic diastolic CHF (congestive heart failure) (HCC) ECG 12-LEAD Routine 03/20/2025 3:20 PM CDT Chronic diastolic CHF (congestive heart failure) (HCC) POCT LIPID PANEL Routine 03/20/2025 10:1 8 AM CDT 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 Hyperlipidemia LDL goal <70 SCREENING MAMMOGRAM BILATERAL W HUSEYIN Schedule Routine, Read Routine (OP Routine) 11/07/2023 9:58 AM [employer] Screening mammogram, encounter for COLONOSCOPY 07/25/2023 8:05 AM CDT from Last 3 Months or Most Recently Relevant to Health Maintenance Results * Transthoracic Echo (TTE) Complete W Doppler/CF (04/03/2025 3:07 PM CDT) Estimated EF 70 % CONS SCIMAGE EF Mod BP 61 % CONS SCIMAGE Anatomical Region Laterality Modality Ultrasound 04/03/2025 3:07 PM CDT Narrative 04/03/2025 4:30 PM CDT [facility] [address], [address], [place] [address] P:[phone] P:[phone] Echocardiographic Report Patient Name: IRMA AYERS M : 1955 Study Date: 04/03/2025 3:07:28 PM Gender: F Tech: Location: [facility] Ref Provider: MARIANELA LEWIS Height(Cm): 163 BSA: 2.33 Weight(Kg): 119.7 Heart Rate: 95 BP: 117 / 86 Quality: Good Order Provider: MARIANELA LEWIS PROCEDURES: Echocardiographic Report: Transthoracic echocardiogram with complete 2D, M-Mode, and color Doppler examination. INDICATIONS: I25.10 Atherosclerotic heart disease of aniak coronary artery without angina pectoris, E66.01 Morbid [...] FINDINGS: Interpretation Site: Exam was interpreted at [facility]. Left Ventricle: Normal left ventricular systolic function. [...] Procedure Note Marianela Lewis MD - 04/03/2025 [facility]iology [address], [place] [address] P:[phone] P:[phone] Echocardiographic Report Patient Name: IRMA AYERS M : 1955 Study Date: 04/03/2025 3:07:28 PM Gender: F Tech: Location: [facility] Ref Provider: MARIANELA LEWIS Height(Cm): 163 BSA: 2.33 Weight(Kg): 119.7 Heart Rate: 95 BP: 117 / 86 Quality: Good Order Provider: MARIANELA LEWIS PROCEDURES: Echocardiographic Report: Transthoracic echocardiogram with complete 2D, M-Mode, and color Dopplerexamination. INDICATIONS: I25.10 Atherosclerotic heart disease of aniak coronary artery withoutangina pectoris, E66.01 Morbid (severe) [...] [ 3.80 - 5.20 ] LVOT Peak Nheemias 0.82m/s [ 0.70 - 1.10 ] LVIDs [...] FINDINGS: Interpretation Site: Exam was interpreted at [facility]. Left Ventricle: Normal left ventricular systolic function. [...] Mammogram Bilateral W Huseyin (11/07/2023 9:58 AM [employer]) Anatomical Region Laterality Modality Breast Bilateral Mammography 11/07/2023 10:4 8 AM [employer] Impressions 11/07/2023 10:48 AM [employer] No evidence of malignancy in either breast. FINAL ASSESSMENT: BI-RADS Category 1: Negative. RECOMMENDATION: Recommend return for annual screening mammogram in 12 months. Electronically signed by: Chey John M.D. Narrative 11/07/2023 10:48 AM [employer] EXAMINATION: BILATERAL SCREENING MAMMOGRAM COMPARISON: Multiple prior studies, most recently 08/22/2022 and dating back to 08/16/2018. TECHNIQUE: Full-field 2D and digital breast tomosynthesis (DBT) images were obtained. CAD was utilized. BREAST PARENCHYMAL COMPOSITION: There are scattered areas of fibroglandular density. FINDINGS: There is no suspicious mass, calcification, or distortion in either breast. There has been no significant interval change from the prior study. Self Screening Mammogram IMG MAMMO PROCEDURES Fi nal Result * COLONOSCOPY (07/25/2023 8:05 AM CDT) Anatomical Region Laterality Modality Other Narrative Procedure Note Stan Short MD - 07/25/2023 8:05 AM CDT [facility] Patient Name: Irma Ayers Procedure Date: 07/25/2023 8:05 AM Date of : 1955 Admit Type: Outpatient Age: 67 Gender: Female Attending MD: Stan Short M.D. Room: [facility] ENDOSCOPY ROOM 2 Note Status: Finalized [...] scope was passed under direct vision. TheColonoscope [id number] was introduced through the anus and advanced [...] malignant neoplasm of colon CPT copyright 2020 [employer]. All rights reserved. The codes documented in this report are preliminary and upon duct cleaner reviewmay be revised to meet current compliance requirements. Recognized by the [employer] for promoting quality in endoscopy Stan Short MD ENDOSCOPY PROCEDURES Final Re sult from Last 3 Months or Most Recently Relevant to Health Maintenance Insurance MEDICARE [facility] MEDICARE [facility] MEDICARE [facility] Advance Directives For more information, please contact: [phone] * Full Code (Latest Code Status on File) Date Activated Date Inactivated Comments 07/25/2023 8:08 AM 07/25/2023 2:29 PM * Full Code Date Activated Date Inactivated Comments 07/25/2023 8:08 AM 07/25/2023 8:08 AM Care Teams Fur Feeder Relationship Specialty Start Date End Date Ricki Small MD [address] [place] [address] PCP - General Family Medicine 09/18/24 [place] [address] [address] Consulting Physician Cardiology 12/04/24
== END 2025-04-24 15:37 | disposition home or self-care (01) ==
PROVIDERS: PCP Family Medicine; Visit Provider Family Medicine
DX: J84.10 Pulmonary fibrosis, unspecified (principal)
CPT/HCPCS: 71046